=== PATIENT | male | born 1945 | race Caucasian/White ===

== ENCOUNTER 2017-06-08 08:31 | Inpatient (IN) | payer MEDICARE, BC ==
[2017-06-08] MEDS: SOD CHLORIDE 0.9% 1,000 ML IV ×5 (08:47→23:19)
[2017-06-08 09:12] LABS: ABNORMAL IP MESSAGE 1; HEMATOCRIT 26.1 % (42.0-52.0); HEMOGLOBIN 8.5 g/dl (14.0-18.0); MEAN CORPUSCULAR HGB CONC 32.6 g/dl (32.0-37.0); MEAN CORPUSCULAR VOLUME 82.9 fl (82.0-101.0); MEAN PLATELET VOLUME 11.3 fl (7.4-10.4); PLATELET COUNT 478 10^3/UL (140-415); POSITIVE DIFF @See below; RED BLOOD COUNT 3.15 10^6/ul (4.70-6.10); RED CELL DISTRIBUTION WIDTH 14.7 % (11.5-14.5)
[2017-06-08 09:12] LABS: WHITE BLOOD COUNT 35.2 10^3/ul (4.8-10.8)
[2017-06-08 09:20] LABS: ADD MAN DIFF? YES
[2017-06-08] MEDS ORDERED: ONDANSETRON 4 MG INJ IV ×2 (09:30)
[2017-06-08] MEDS ORDERED: NON-FORMULARY/PATIENT OWN MED (Temazepam* 15 MG) PO (09:30)
[2017-06-08] MEDS ORDERED: ACETAMINOPHEN 325 MG TAB PO ×2 (09:30)
[2017-06-08 09:44] LABS: LACTIC ACID 1.2 mmol/L (0.5-2.0)
[2017-06-08 09:44] LABS: INR 1.23; PROTIME 15.7 Sec (11.9-14.9); PT RATIO 1.2
[2017-06-08 09:45] LABS: PARTIAL THROMBOPLASTIN TIME 28.6 Sec (25.0-35.0)
[2017-06-08] MEDS ORDERED: DOCUSATE SODIUM 100 MG CAP PO (10:00)
[2017-06-08] MEDS ORDERED: morphine 2 MG INJ IV (10:00)
[2017-06-08] MEDS ORDERED: NACL 0.9% 3 ML SYG IV (10:00)
[2017-06-08 10:05] LABS: ALANINE AMINOTRANSFERASE 35 IU/L (13-69); ALBUMIN 3.3 g/dl (3.3-4.9); ALBUMIN/GLOBULIN RATIO 0.86; ALKALINE PHOSPHATASE 168 IU/L (42-121); ANION GAP 22 (8-16); ASPARTATE AMINO TRANSFERASE 23 IU/L (15-46); BLOOD UREA NITROGEN 109 mg/dl (7-20); CARBON DIOXIDE 20 mmol/L (21-31); CHLORIDE 99 mmol/L (97-110); CREATININE 4.05 mg/dl (0.61-1.24); GLUCOSE 331 mg/dl (70-220); POTASSIUM 3.9 mmol/L (3.5-5.1); SODIUM 137 mmol/L (135-144); TOTAL PROTEIN 7.1 g/dl (6.1-8.1)
[2017-06-08 10:11] LABS: ADD UMIC NO; UR ASCORBIC ACID NEGATIVE (NEGATIVE); UR BILIRUBIN (Dip) NEGATIVE (NEGATIVE); UR BLOOD (Dip) NEGATIVE (NEGATIVE); UR CLARITY CLEAR (CLEAR); UR COLOR YELLOW (YELLOW); UR GLUCOSE (Dip) 2+ mg/dL (NEGATIVE); UR KETONES (Dip) NEGATIVE (NEGATIVE); UR LEUKOCYTE ESTERASE (Dip) NEGATIVE Leu/ul (NEGATIVE); UR NITRITE (Dip) NEGATIVE (NEGATIVE); UR SPECIFIC GRAVITY (Dip) 1.012 (1.003-1.030); UR TOTAL PROTEIN (Dip) NEGATIVE (NEGATIVE); UR UROBILINOGEN (Dip) NEGATIVE (NEGATIVE)
[2017-06-08 10:14] LABS: TROPONIN-I 0.028 ng/ml (0.00-0.12)
[2017-06-08 10:28] LABS: ANISOCYTOSIS 1+ (0-0); BAND NEUTROPHILS #M 1.7 10^3/ul (0.0-0.6); BAND NEUTROPHILS % (M) 5 % (0-4); BURR CELLS 1+ (0-0); EOSINOPHILS % (M) 1 % (0-7); LYMPHOCYTES #M 2.1 10^3/ul (0.8-2.9); LYMPHOCYTES % (M) 6 % (15-51); MICROCYTOSIS 1+ (0-0); MONOCYTE #M 1.7 10^3/ul (0.3-0.9); MONOCYTES % (M) 5 % (0-11); MYELOCYTES #M 0.7 10^3/ul (0.0-0.0); MYELOCYTES % (M) 2 % (0-0); PLATELET ESTIMATE NORMAL; PLATELET MORPHOLOGY COMMENT @See below; POIKILOCYTOSIS 1+ (0-0); RBC MORPHOLOGY COMMENT @See below; SEG NEUT #M 29.1 10^3/ul (1.7-7.5); SEGMENTED NEUTROPHILS (M) % 81 % (39-77); SMUDGE%M 4 % (0-0); WBC MORPHOLOGY COMMENT @See below
[2017-06-08 10:47] LABS: C-REACTIVE PROTEIN 31.7 mg/dl (0.0-0.9)
[2017-06-08] MEDS: PIPER-TAZO 3.375 GM IV (PMX) 50 ML IVPB (10:51)
[2017-06-08] MEDS: VANCOMYCIN 1 GM (PMX) 250 ML IVPB (11:06)
[2017-06-08] MEDS: SOD CHLORIDE 0.9% 700 ML IV (11:08)
[2017-06-08] MEDS ORDERED: VANCOMYCIN IV PER PHARMACY XX (11:30)
[2017-06-08] MEDS ORDERED: PIPER-TAZO 3.375 GM IV (PMX) 50 ML IVPB (12:00)
[2017-06-08] MEDS: PIPER-TAZO 2.25 GM (PMX) 50 ML IVPB ×2 (12:00→17:11)
[2017-06-08] MEDS ORDERED: ZOLPIDEM 5 MG TAB PO (12:30)
[2017-06-08 12:32] LABS: CHOLESTEROL 65 mg/dl (100-200)
[2017-06-08 12:32] LABS: CHOL/HDL RATIO 5.4 RATIO; HDL CHOLESTEROL 12 mg/dl (31-75); LDL CHOLESTEROL,CALCULATED 20 mg/dl; TRIGLYCERIDES 166 mg/dl (0-149)
[2017-06-08 12:35] LABS: LACTIC ACID 1.2 mmol/L (0.5-2.0)
[2017-06-08] MEDS: INSULIN GLARGINE [LANtus] 3 ML PEN SC (13:00)
[2017-06-08] MEDS: INSULIN ASPART [NOVOLOG] 3 ML PEN SC ×5 (13:02→20:57)
[2017-06-08 13:03] LABS: THYROID STIMULATING HORMONE 0.055 MIU/L (0.465-4.680)
[2017-06-08 13:17] LABS: HEMOGLOBIN A1C 7.5 % (0-5.9)
[2017-06-08] MEDS ORDERED: GLUCOSE GEL 15 GRAM TUBE PO ×2 (14:00)
[2017-06-08] MEDS ORDERED: GLUCOSE GEL 15 GRAM TUBE BUCCAL (14:00)
[2017-06-08] MEDS: VANCOMYCIN 1.75 GM in NS 500 ML IVPB (14:00)
[2017-06-08] MEDS: ENALAPRIL 5 MG TAB PO (14:00)
[2017-06-08] MEDS ORDERED: GLUCAGON 1 MG INJ IM (14:00)
[2017-06-08] MEDS ORDERED: DEXTROSE 50% 50 ML SYRINGE IV (14:00)
[2017-06-08] MEDS: FUROSEMIDE 40 MG TAB PO (15:07)
[2017-06-08] MEDS: CLOPIDOGREL 75 MG TAB PO (15:07)
[2017-06-08] MEDS: FAMOTIDINE 20 MG TAB PO (15:07)
[2017-06-08] MEDS: CLINDAMYCIN 600 MG/D5W (PMX) 50 ML IVPB ×3 (15:09→23:19)
[2017-06-08 15:25] LABS: LACTIC ACID 1.1 mmol/L (0.5-2.0)
[2017-06-08] MEDS ORDERED: COLLAGENASE 30 GM TUBE TOP (17:00)
[2017-06-08] MEDS: SODIUM HYPOCHLORITE 1/40% 1L IRRIG IRR (18:46)
[2017-06-08] MEDS: COLLAGENASE 30 GM TUBE TOP (18:46)
[2017-06-08 19:13] LABS: CREATININE,URINE RANDOM 69.51 mg/dl (20-370); PROTEIN/CREAT RATIO 0.31 RATIO
[2017-06-08 19:15] LABS: SODIUM,URINE RANDOM 42 mmol/L (30-90)
[2017-06-08] MEDS: VANCOMYCIN 750 MG in DEXTROSE 5% 150 ML IVPB (20:50)
[2017-06-08] MEDS: ATORVASTATIN 40 MG TAB PO (20:50)
[2017-06-08] MEDS: METOPROLOL 25 MG TAB PO (20:51)
[2017-06-08] MEDS: PREGABALIN 75 MG CAP PO (20:51)
[2017-06-08] MEDS: HEPARIN 5,000 UNIT/0.5 ML VIAL SC (20:56)
[2017-06-09] MEDS: PIPER-TAZO 2.25 GM (PMX) 50 ML IVPB ×2 (00:23→05:34)
[2017-06-09] MEDS: ACCU-CHEK XX (02:00)
[2017-06-09] MEDS: CLINDAMYCIN 600 MG/D5W (PMX) 50 ML IVPB ×3 (05:02→17:41)
[2017-06-09 05:19] LABS: WHITE BLOOD COUNT 30.8 10^3/ul (4.8-10.8)
[2017-06-09 05:19] LABS: ABNORMAL IP MESSAGE 1; HEMATOCRIT 21.6 % (42.0-52.0); HEMOGLOBIN 7.1 g/dl (14.0-18.0); MEAN CORPUSCULAR HGB CONC 32.9 g/dl (32.0-37.0); MEAN CORPUSCULAR VOLUME 82.1 fl (82.0-101.0); MEAN PLATELET VOLUME 11.6 fl (7.4-10.4); PLATELET COUNT 427 10^3/UL (140-415); POSITIVE DIFF @See below; RED BLOOD COUNT 2.63 10^6/ul (4.70-6.10); RED CELL DISTRIBUTION WIDTH 14.8 % (11.5-14.5)
[2017-06-09 05:38] LABS: ADD MAN DIFF? YES
[2017-06-09 05:51] LABS: URIC ACID 8.2 mg/dl (3.1-7.9)
[2017-06-09 05:51] LABS: CREATINE KINASE 20 IU/L (23-200)
[2017-06-09 06:21] LABS: MAGNESIUM 1.6 mg/dl (1.7-2.5)
[2017-06-09 06:21] LABS: PHOSPHORUS 3.7 mg/dl (2.5-4.9)
[2017-06-09 07:30] LABS: BAND NEUTROPHILS % (M) 10 % (0-4); EOSINOPHILS % (M) 2 % (0-7); LYMPHOCYTES #M 1.8 10^3/ul (0.8-2.9); LYMPHOCYTES % (M) 6 % (15-51); METAMYELOCYTES #M 0.3 10^3/ul (0.0-0.0); METAMYELOCYTES %M 1 % (0-0); MONOCYTE #M 2.4 10^3/ul (0.3-0.9); MONOCYTES % (M) 8 % (0-11); OVALOCYTES 1+ (0-0); PLATELET ESTIMATE NORMAL; POIKILOCYTOSIS 1+ (0-0); POLYCHROMASIA 1+ (0-0); SEG NEUT #M 23.4 10^3/ul (1.7-7.5); SEGMENTED NEUTROPHILS (M) % 73 % (39-77)
[2017-06-09] MEDS: INSULIN ASPART [NOVOLOG] 3 ML PEN SC ×7 (08:06→21:23)
[2017-06-09] MEDS: INSULIN GLARGINE [LANtus] 3 ML PEN SC (08:07)
[2017-06-09] MEDS: CLOPIDOGREL 75 MG TAB PO (08:07)
[2017-06-09] MEDS: PREGABALIN 75 MG CAP PO ×2 (08:08→21:10)
[2017-06-09] MEDS: FAMOTIDINE 20 MG TAB PO (08:08)
[2017-06-09] MEDS: COLLAGENASE 30 GM TUBE TOP (08:09)
[2017-06-09] MEDS: SODIUM HYPOCHLORITE 1/40% 1L IRRIG IRR (08:09)
[2017-06-09] MEDS: ENALAPRIL 5 MG TAB PO (08:12)
[2017-06-09] MEDS: METOPROLOL 25 MG TAB PO ×2 (08:12→21:14)
[2017-06-09] MEDS: FUROSEMIDE 40 MG TAB PO (08:12)
[2017-06-09] MEDS ORDERED: ENOXAPARIN 40 MG/0.4 ML SYG SC (09:00)
[2017-06-09] MEDS: HEPARIN 5,000 UNIT/0.5 ML VIAL SC ×2 (09:44→21:11)
[2017-06-09] MEDS: ALLOPURINOL 100 MG TAB PO (11:03)
[2017-06-09 11:07] LABS: RETICULOCYTE COUNT # 0.043 X10^6 (0.020-0.110); RETICULOCYTE COUNT % 1.6 % (0.5-1.5)
[2017-06-09 11:07] LABS: RETICULOCYTE RBC 2.67
[2017-06-09 11:12] LABS: IRON 15 ug/dl (35-150)
[2017-06-09 11:21] LABS: % IRON SATURATION 10 % SAT (22-52); TOTAL IRON BINDING CAPACITY 156 ug/dl (241-421)
[2017-06-09] MEDS: MAGNESIUM SULFATE 2 GM/50 ML 50 ML IVPB (11:57)
[2017-06-09] MEDS: SOD CHLORIDE 0.9% 1,000 ML IV ×2 (12:01→17:47)
[2017-06-09 12:19] LABS: ANION GAP 16 (8-16); BLOOD UREA NITROGEN 74 mg/dl (7-20); CALCIUM 8.9 mg/dl (8.4-10.2); CARBON DIOXIDE 22 mmol/L (21-31); CHLORIDE 107 mmol/L (97-110); CREATININE 2.32 mg/dl (0.61-1.24); GLUCOSE 253 mg/dl (70-220); POTASSIUM 3.9 mmol/L (3.5-5.1); SODIUM 141 mmol/L (135-144)
[2017-06-09 12:22] LABS: ABNORMAL IP MESSAGE 1; HEMATOCRIT 22.3 % (42.0-52.0); HEMOGLOBIN 7.3 g/dl (14.0-18.0); MEAN CORPUSCULAR HGB CONC 32.7 g/dl (32.0-37.0); MEAN CORPUSCULAR VOLUME 82.6 fl (82.0-101.0); MEAN PLATELET VOLUME 11.4 fl (7.4-10.4); PLATELET COUNT 484 10^3/UL (140-415); POSITIVE DIFF @See below
[2017-06-09 12:22] LABS: WHITE BLOOD COUNT 33.3 10^3/ul (4.8-10.8)
[2017-06-09 12:57] LABS: ADD MAN DIFF? YES
[2017-06-09 13:25] LABS: BAND NEUTROPHILS #M 0.9 10^3/ul (0.0-0.6); BAND NEUTROPHILS % (M) 3 % (0-4); BASOPHIL #M 0.3 10^3/ul (0.0-0.0); BASOPHILS % (M) 1 % (0-2); EOSINOPHILS % (M) 1 % (0-7); LYMPHOCYTES #M 1.6 10^3/ul (0.8-2.9); LYMPHOCYTES % (M) 5 % (15-51); MONOCYTE #M 0.9 10^3/ul (0.3-0.9); MONOCYTES % (M) 3 % (0-11); MYELOCYTES #M 0.3 10^3/ul (0.0-0.0); MYELOCYTES % (M) 1 % (0-0); PLATELET ESTIMATE INCREASED; POIKILOCYTOSIS 1+ (0-0); SEG NEUT #M 28.9 10^3/ul (1.7-7.5); SEGMENTED NEUTROPHILS (M) % 86 % (39-77); SMUDGE%M 2 % (0-0)
[2017-06-09] MEDS: ACETYLCYSTEINE 600 MG CAP PO ×2 (13:40→21:10)
[2017-06-09] MEDS ORDERED: INFLUENZA VIRUS VACCINE 0.5 ML SYG IM* (14:00)
[2017-06-09] MEDS: ACETAMINOPHEN 325 MG TAB PO (14:53)
[2017-06-09] MEDS: MEROPENEM 500MG/50 ML (PMX) 50 ML IVPB ×2 (14:59→21:10)
[2017-06-09] MEDS: FLUCONAZOLE 100 MG/NS (PMX) 50 ML IVPB (15:34)
[2017-06-09] MEDS: ATORVASTATIN 40 MG TAB PO (21:10)
[2017-06-10] MEDS: CLINDAMYCIN 600 MG/D5W (PMX) 50 ML IVPB ×4 (00:11→17:18)
[2017-06-10] MEDS: ACCU-CHEK XX (02:25)
[2017-06-10 05:58] LABS: ABNORMAL IP MESSAGE 1; HEMATOCRIT 23.5 % (42.0-52.0); HEMOGLOBIN 7.6 g/dl (14.0-18.0); MEAN CORPUSCULAR HEMOGLOBIN 26.5 pg (29.0-33.0); MEAN CORPUSCULAR HGB CONC 32.3 g/dl (32.0-37.0); MEAN CORPUSCULAR VOLUME 81.9 fl (82.0-101.0); MEAN PLATELET VOLUME 11.2 fl (7.4-10.4); PLATELET COUNT 540 10^3/UL (140-415); POSITIVE DIFF @See below; RED BLOOD COUNT 2.87 10^6/ul (4.70-6.10)
[2017-06-10 06:15] LABS: ADD MAN DIFF? YES
[2017-06-10 06:28] LABS: PARTIAL THROMBOPLASTIN TIME 36.8 Sec (25.0-35.0); PROTIME 15.4 Sec (11.9-14.9); PT RATIO 1.2
[2017-06-10 06:43] LABS: ALANINE AMINOTRANSFERASE 42 IU/L (13-69); ALBUMIN/GLOBULIN RATIO 0.76; ALKALINE PHOSPHATASE 179 IU/L (42-121); ANION GAP 18 (8-16); ASPARTATE AMINO TRANSFERASE 63 IU/L (15-46); BILIRUBIN,INDIRECT 0.1 mg/dl (0-1.1); BILIRUBIN,TOTAL 0.1 mg/dl (0.2-1.3); BLOOD UREA NITROGEN 55 mg/dl (7-20); CALCIUM 8.9 mg/dl (8.4-10.2); CARBON DIOXIDE 22 mmol/L (21-31); CHLORIDE 108 mmol/L (97-110); CREATININE 1.76 mg/dl (0.61-1.24); GLUCOSE 225 mg/dl (70-220); POTASSIUM 3.7 mmol/L (3.5-5.1); SODIUM 144 mmol/L (135-144); TOTAL PROTEIN 6.9 g/dl (6.1-8.1)
[2017-06-10] MEDS: FUROSEMIDE 40 MG TAB PO (08:15)
[2017-06-10] MEDS: CLOPIDOGREL 75 MG TAB PO (08:15)
[2017-06-10] MEDS: PREGABALIN 75 MG CAP PO ×2 (08:16→20:55)
[2017-06-10] MEDS: ENALAPRIL 5 MG TAB PO (08:16)
[2017-06-10] MEDS: ALLOPURINOL 100 MG TAB PO (08:16)
[2017-06-10] MEDS: ACETYLCYSTEINE 600 MG CAP PO ×2 (08:17→20:56)
[2017-06-10] MEDS: METOPROLOL 25 MG TAB PO ×2 (08:17→20:56)
[2017-06-10] MEDS: INSULIN ASPART [NOVOLOG] 3 ML PEN SC ×7 (08:18→21:04)
[2017-06-10] MEDS: HEPARIN 5,000 UNIT/0.5 ML VIAL SC ×2 (08:20→21:03)
[2017-06-10] MEDS: INSULIN GLARGINE [LANtus] 3 ML PEN SC (08:21)
[2017-06-10] MEDS: MEROPENEM 500MG/50 ML (PMX) 50 ML IVPB ×2 (08:21→20:55)
[2017-06-10] MEDS ORDERED: IPRATROPIUM (NEB) 0.5 MG/2.5 ML AMP HHN (08:36)
[2017-06-10] MEDS: ALBUTEROL/IPRATROPIUM (NEB) 3 ML AMP HHN (09:00)
[2017-06-10 09:40] LABS: ANISOCYTOSIS 1+ (0-0); BAND NEUTROPHILS #M 1.4 10^3/ul (0.0-0.6); BAND NEUTROPHILS % (M) 4 % (0-4); BURR CELLS 1+ (0-0); GIANT THROMBO% (M) 1 % (0-0); LYMPHOCYTES #M 2.5 10^3/ul (0.8-2.9); LYMPHOCYTES % (M) 7 % (15-51); MONOCYTE #M 3.2 10^3/ul (0.3-0.9); MONOCYTES % (M) 9 % (0-11); OVALOCYTES 1+ (0-0); PLASMA CELLS #M 0.3 10^3/ul (0.0-0.0); PLASMAC%(M) 1 % (0); PLATELET ESTIMATE INCREASED; PLATELET MORPHOLOGY COMMENT @See below; POIKILOCYTOSIS 2+ (0-0); POLYCHROMASIA 2+ (0-0); SEG NEUT #M 28.9 10^3/ul (1.7-7.5); SEGMENTED NEUTROPHILS (M) % 79 % (39-77); SMUDGE%M 3 % (0-0)
[2017-06-10] MEDS: FUROSEMIDE 40 MG INJ IV (11:28)
[2017-06-10] MEDS: COLLAGENASE 30 GM TUBE TOP (11:34)
[2017-06-10] MEDS: SODIUM HYPOCHLORITE 1/40% 1L IRRIG IRR (11:34)
[2017-06-10] MEDS: FLUCONAZOLE 100 MG/NS (PMX) 50 ML IVPB (15:01)
[2017-06-10] MEDS: ATORVASTATIN 40 MG TAB PO (20:55)
[2017-06-11] MEDS: CLINDAMYCIN 600 MG/D5W (PMX) 50 ML IVPB ×5 (00:04→23:51)
[2017-06-11] MEDS: ACCU-CHEK XX (02:40)
[2017-06-11] MEDS: ONDANSETRON 4 MG INJ IV ×3 (05:18→21:11)
[2017-06-11 06:13] LABS: WHITE BLOOD COUNT 35.5 10^3/ul (4.8-10.8)
[2017-06-11 06:13] LABS: ABNORMAL IP MESSAGE 1; HEMATOCRIT 23.8 % (42.0-52.0); HEMOGLOBIN 7.9 g/dl (14.0-18.0); MEAN CORPUSCULAR HEMOGLOBIN 26.7 pg (29.0-33.0); MEAN CORPUSCULAR HGB CONC 33.2 g/dl (32.0-37.0); MEAN CORPUSCULAR VOLUME 80.4 fl (82.0-101.0); MEAN PLATELET VOLUME 11.3 fl (7.4-10.4); PLATELET COUNT 521 10^3/UL (140-415); POSITIVE DIFF @See below; RED BLOOD COUNT 2.96 10^6/ul (4.70-6.10); RED CELL DISTRIBUTION WIDTH 14.9 % (11.5-14.5)
[2017-06-11 06:18] LABS: ADD MAN DIFF? YES
[2017-06-11 06:46] LABS: ANION GAP 16 (8-16); BLOOD UREA NITROGEN 44 mg/dl (7-20); CALCIUM 8.8 mg/dl (8.4-10.2); CARBON DIOXIDE 27 mmol/L (21-31); CHLORIDE 103 mmol/L (97-110); CREATININE 1.52 mg/dl (0.61-1.24); GLUCOSE 280 mg/dl (70-220); SODIUM 143 mmol/L (135-144)
[2017-06-11] MEDS: PREGABALIN 75 MG CAP PO ×2 (08:09→21:01)
[2017-06-11] MEDS: CLOPIDOGREL 75 MG TAB PO (08:09)
[2017-06-11] MEDS: ACETYLCYSTEINE 600 MG CAP PO ×2 (08:09→21:00)
[2017-06-11] MEDS: ALLOPURINOL 100 MG TAB PO (08:09)
[2017-06-11] MEDS: FUROSEMIDE 40 MG TAB PO (08:11)
[2017-06-11] MEDS: METOPROLOL 25 MG TAB PO ×2 (08:12→21:03)
[2017-06-11] MEDS: ENALAPRIL 5 MG TAB PO (08:12)
[2017-06-11] MEDS: INSULIN ASPART [NOVOLOG] 3 ML PEN SC ×7 (08:13→21:00)
[2017-06-11] MEDS: INSULIN GLARGINE [LANtus] 3 ML PEN SC (08:15)
[2017-06-11] MEDS: HEPARIN 5,000 UNIT/0.5 ML VIAL SC ×2 (08:15→21:02)
[2017-06-11] MEDS: MEROPENEM 500MG/50 ML (PMX) 50 ML IVPB (08:18)
[2017-06-11] MEDS: SODIUM HYPOCHLORITE 1/40% 1L IRRIG IRR (08:20)
[2017-06-11] MEDS: COLLAGENASE 30 GM TUBE TOP (08:21)
[2017-06-11 09:40] LABS: ANISOCYTOSIS 1+ (0-0); BAND NEUTROPHILS % (M) 3 % (0-4); LYMPHOCYTES #M 0.7 10^3/ul (0.8-2.9); LYMPHOCYTES % (M) 2 % (15-51); MONOCYTE #M 2.1 10^3/ul (0.3-0.9); MONOCYTES % (M) 6 % (0-11); MYELOCYTES #M 0.3 10^3/ul (0.0-0.0); MYELOCYTES % (M) 1 % (0-0); PLATELET ESTIMATE INCREASED; POLYCHROMASIA 3+ (0-0); SEG NEUT #M 31.6 10^3/ul (1.7-7.5); SEGMENTED NEUTROPHILS (M) % 88 % (39-77); SMUDGE%M 1 % (0-0)
[2017-06-11] MEDS: POTASSIUM CHLORIDE (SR) 20 MEQ TAB PO (11:50)
[2017-06-11] MEDS: FLUCONAZOLE 100 MG/NS (PMX) 50 ML IVPB (13:49)
[2017-06-11] MEDS: MULTIVIT/CA CARB/B CMPLX/FA TAB PO (17:41)
[2017-06-11] MEDS: ZINC SULFATE 220 MG CAP PO (17:41)
[2017-06-11] MEDS: ATORVASTATIN 40 MG TAB PO (21:00)
[2017-06-11] MEDS: MEROPENEM 1 GM/50ML(PMX) 50 ML IVPB (21:03)
[2017-06-11] MEDS: FAMOTIDINE 20 MG INJ IV (22:05)
[2017-06-11] MEDS: ACETAMINOPHEN 325 MG TAB PO (23:56)
[2017-06-12] MEDS: ACCU-CHEK XX (02:00)
[2017-06-12] MEDS: CLINDAMYCIN 600 MG/D5W (PMX) 50 ML IVPB ×4 (05:48→23:07)
[2017-06-12 06:43] LABS: WHITE BLOOD COUNT 30.9 10^3/ul (4.8-10.8)
[2017-06-12 06:43] LABS: ABNORMAL IP MESSAGE 1; HEMATOCRIT 23.7 % (42.0-52.0); HEMOGLOBIN 7.7 g/dl (14.0-18.0); MEAN CORPUSCULAR HEMOGLOBIN 26.5 pg (29.0-33.0); MEAN CORPUSCULAR HGB CONC 32.5 g/dl (32.0-37.0); MEAN CORPUSCULAR VOLUME 81.4 fl (82.0-101.0); MEAN PLATELET VOLUME 10.9 fl (7.4-10.4); PLATELET COUNT 467 10^3/UL (140-415); POSITIVE DIFF @See below; RED BLOOD COUNT 2.91 10^6/ul (4.70-6.10); RED CELL DISTRIBUTION WIDTH 14.7 % (11.5-14.5)
[2017-06-12 06:56] LABS: ADD MAN DIFF? YES
[2017-06-12 07:13] LABS: ANION GAP 14 (8-16); BLOOD UREA NITROGEN 45 mg/dl (7-20); CALCIUM 8.7 mg/dl (8.4-10.2); CARBON DIOXIDE 30 mmol/L (21-31); CHLORIDE 100 mmol/L (97-110); CREATININE 1.49 mg/dl (0.61-1.24); GLUCOSE 236 mg/dl (70-220); POTASSIUM 3.2 mmol/L (3.5-5.1); SODIUM 141 mmol/L (135-144)
[2017-06-12 07:18] LABS: PHOSPHORUS 4.1 mg/dl (2.5-4.9)
[2017-06-12 07:18] LABS: MAGNESIUM 1.8 mg/dl (1.7-2.5)
[2017-06-12] MEDS: CLOPIDOGREL 75 MG TAB PO (08:17)
[2017-06-12] MEDS: MULTIVIT/CA CARB/B CMPLX/FA TAB PO (08:17)
[2017-06-12] MEDS: ACETYLCYSTEINE 600 MG CAP PO ×2 (08:17→20:34)
[2017-06-12] MEDS: ZINC SULFATE 220 MG CAP PO (08:17)
[2017-06-12] MEDS: PREGABALIN 75 MG CAP PO ×2 (08:18→20:34)
[2017-06-12] MEDS: FUROSEMIDE 40 MG TAB PO (08:18)
[2017-06-12] MEDS: METOPROLOL 25 MG TAB PO ×2 (08:18→20:33)
[2017-06-12] MEDS: ALLOPURINOL 100 MG TAB PO (08:18)
[2017-06-12] MEDS: ENALAPRIL 5 MG TAB PO (08:18)
[2017-06-12] MEDS: FAMOTIDINE 20 MG INJ IV (08:19)
[2017-06-12] MEDS: MEROPENEM 1 GM/50ML(PMX) 50 ML IVPB ×2 (08:19→20:32)
[2017-06-12] MEDS: INSULIN ASPART [NOVOLOG] 3 ML PEN SC ×7 (08:29→20:35)
[2017-06-12] MEDS: HEPARIN 5,000 UNIT/0.5 ML VIAL SC ×2 (08:31→20:34)
[2017-06-12] MEDS: INSULIN GLARGINE [LANtus] 3 ML PEN SC (08:31)
[2017-06-12 09:39] LABS: BAND NEUTROPHILS #M 0.9 10^3/ul (0.0-0.6); BAND NEUTROPHILS % (M) 3 % (0-4); LYMPHOCYTES #M 1.2 10^3/ul (0.8-2.9); LYMPHOCYTES % (M) 4 % (15-51); MONOCYTE #M 2.7 10^3/ul (0.3-0.9); MONOCYTES % (M) 9 % (0-11); PLATELET ESTIMATE NORMAL; POIKILOCYTOSIS 1+ (0-0); POLYCHROMASIA 3+ (0-0); REACTIVE LYMPHOCYTES #M 0.6 10^3/ul (0.0-0.0); REACTIVE LYMPHOCYTES% (M) 2 % (0-0); SEG NEUT #M 25.6 10^3/ul (1.7-7.5); SEGMENTED NEUTROPHILS (M) % 82 % (39-77)
[2017-06-12] MEDS: POTASSIUM CHLORIDE (SR) 20 MEQ TAB PO (12:14)
[2017-06-12] MEDS: SODIUM HYPOCHLORITE 1/40% 1L IRRIG IRR (13:04)
[2017-06-12] MEDS: COLLAGENASE 30 GM TUBE TOP (13:04)
[2017-06-12] MEDS: FLUCONAZOLE 100 MG/NS (PMX) 50 ML IVPB (14:39)
[2017-06-12] MEDS: ATORVASTATIN 40 MG TAB PO (20:34)
[2017-06-12] MEDS: ACETAMINOPHEN 325 MG TAB PO (21:18)
[2017-06-12] MEDS: morphine 2 MG INJ IV (23:07)
[2017-06-12] MEDS: ONDANSETRON 4 MG INJ IV (23:07)
[2017-06-13] MEDS: ACCU-CHEK XX (01:24)
[2017-06-13] MEDS: CLINDAMYCIN 600 MG/D5W (PMX) 50 ML IVPB ×4 (05:26→23:48)
[2017-06-13 05:46] LABS: ABNORMAL IP MESSAGE 1; HEMATOCRIT 25.4 % (42.0-52.0); HEMOGLOBIN 8.1 g/dl (14.0-18.0); MEAN CORPUSCULAR HEMOGLOBIN 26.3 pg (29.0-33.0); MEAN CORPUSCULAR HGB CONC 31.9 g/dl (32.0-37.0); MEAN CORPUSCULAR VOLUME 82.5 fl (82.0-101.0); MEAN PLATELET VOLUME 10.9 fl (7.4-10.4); PLATELET COUNT 436 10^3/UL (140-415); POSITIVE DIFF @See below; RED BLOOD COUNT 3.08 10^6/ul (4.70-6.10); RED CELL DISTRIBUTION WIDTH 14.9 % (11.5-14.5)
[2017-06-13 05:46] LABS: WHITE BLOOD COUNT 28.6 10^3/ul (4.8-10.8)
[2017-06-13 06:13] LABS: ANION GAP 12 (8-16); BLOOD UREA NITROGEN 38 mg/dl (7-20); CALCIUM 8.9 mg/dl (8.4-10.2); CARBON DIOXIDE 33 mmol/L (21-31); CHLORIDE 98 mmol/L (97-110); CREATININE 1.43 mg/dl (0.61-1.24); GLUCOSE 189 mg/dl (70-220); POTASSIUM 3.4 mmol/L (3.5-5.1); SODIUM 140 mmol/L (135-144)
[2017-06-13 06:20] LABS: ADD MAN DIFF? YES
[2017-06-13] MEDS: COLLAGENASE 30 GM TUBE TOP (08:37)
[2017-06-13] MEDS: FAMOTIDINE 20 MG TAB PO (08:38)
[2017-06-13] MEDS: FUROSEMIDE 40 MG TAB PO (08:38)
[2017-06-13] MEDS: CLOPIDOGREL 75 MG TAB PO (08:38)
[2017-06-13] MEDS: POTASSIUM CHLORIDE (SR) 20 MEQ TAB PO (08:38)
[2017-06-13] MEDS: ACETYLCYSTEINE 600 MG CAP PO (08:39)
[2017-06-13] MEDS: ENALAPRIL 5 MG TAB PO (08:39)
[2017-06-13] MEDS: METOPROLOL 25 MG TAB PO ×2 (08:39→20:43)
[2017-06-13] MEDS: ALLOPURINOL 100 MG TAB PO (08:39)
[2017-06-13] MEDS: MULTIVIT/CA CARB/B CMPLX/FA TAB PO (08:39)
[2017-06-13] MEDS: ZINC SULFATE 220 MG CAP PO (08:39)
[2017-06-13] MEDS: PREGABALIN 75 MG CAP PO ×2 (08:39→20:43)
[2017-06-13] MEDS: HEPARIN 5,000 UNIT/0.5 ML VIAL SC ×2 (08:40→20:52)
[2017-06-13] MEDS: SODIUM HYPOCHLORITE 1/40% 1L IRRIG IRR (08:40)
[2017-06-13] MEDS: MEROPENEM 1 GM/50ML(PMX) 50 ML IVPB ×2 (08:45→20:43)
[2017-06-13] MEDS: INSULIN GLARGINE [LANtus] 3 ML PEN SC (08:52)
[2017-06-13] MEDS: INSULIN ASPART [NOVOLOG] 3 ML PEN SC ×7 (08:53→20:51)
[2017-06-13 10:13] LABS: EOSINOPHILS % (M) 1 % (0-7); GIANT THROMBO% (M) 1 % (0-0); LYMPHOCYTES % (M) 7 % (15-51); MONOCYTES % (M) 7 % (0-11); PLATELET ESTIMATE NORMAL; POLYCHROMASIA 2+ (0-0); SEGMENTED NEUTROPHILS (M) % 85 % (39-77); SMUDGE%M 3 % (0-0)
[2017-06-13] MEDS: FLUCONAZOLE 100 MG/NS (PMX) 50 ML IVPB (13:37)
[2017-06-13] MEDS: LINAGLIPTIN 5 MG TABLET PO (14:56)
[2017-06-13] MEDS: ATORVASTATIN 40 MG TAB PO (20:43)
[2017-06-14] MEDS: ACCU-CHEK XX (02:53)
[2017-06-14] MEDS: CLINDAMYCIN 600 MG/D5W (PMX) 50 ML IVPB ×3 (05:34→17:09)
[2017-06-14 05:55] LABS: ABNORMAL IP MESSAGE 1; HEMATOCRIT 26.1 % (42.0-52.0); HEMOGLOBIN 8.3 g/dl (14.0-18.0); MEAN CORPUSCULAR HGB CONC 31.8 g/dl (32.0-37.0); MEAN CORPUSCULAR VOLUME 81.8 fl (82.0-101.0); MEAN PLATELET VOLUME 11.4 fl (7.4-10.4); PLATELET COUNT 413 10^3/UL (140-415); POSITIVE DIFF @See below; RED BLOOD COUNT 3.19 10^6/ul (4.70-6.10); RED CELL DISTRIBUTION WIDTH 14.8 % (11.5-14.5)
[2017-06-14 05:55] LABS: WHITE BLOOD COUNT 26.8 10^3/ul (4.8-10.8)
[2017-06-14 06:14] LABS: ANION GAP 10 (8-16); BLOOD UREA NITROGEN 37 mg/dl (7-20); CALCIUM 8.3 mg/dl (8.4-10.2); CARBON DIOXIDE 32 mmol/L (21-31); CHLORIDE 98 mmol/L (97-110); CREATININE 1.36 mg/dl (0.61-1.24); GLUCOSE 206 mg/dl (70-220); POTASSIUM 3.4 mmol/L (3.5-5.1); SODIUM 137 mmol/L (135-144)
[2017-06-14 06:30] LABS: ADD MAN DIFF? YES
[2017-06-14 07:44] LABS: BASOPHIL #M 0.2 10^3/ul (0.0-0.0); BASOPHILS % (M) 1 % (0-2); PLATELET ESTIMATE NORMAL; POLYCHROMASIA 3+ (0-0); SMUDGE%M 3 % (0-0)
[2017-06-14] MEDS: MULTIVIT/CA CARB/B CMPLX/FA TAB PO (08:20)
[2017-06-14] MEDS: LINAGLIPTIN 5 MG TABLET PO (08:20)
[2017-06-14] MEDS: METOPROLOL 25 MG TAB PO ×2 (08:20→21:27)
[2017-06-14] MEDS: FUROSEMIDE 40 MG TAB PO (08:21)
[2017-06-14] MEDS: ALLOPURINOL 100 MG TAB PO (08:21)
[2017-06-14] MEDS: ZINC SULFATE 220 MG CAP PO (08:21)
[2017-06-14] MEDS: CLOPIDOGREL 75 MG TAB PO (08:21)
[2017-06-14] MEDS: ENALAPRIL 5 MG TAB PO (08:21)
[2017-06-14] MEDS: FAMOTIDINE 20 MG TAB PO (08:21)
[2017-06-14] MEDS: PREGABALIN 75 MG CAP PO ×2 (08:21→21:26)
[2017-06-14] MEDS: HEPARIN 5,000 UNIT/0.5 ML VIAL SC ×2 (08:25→21:30)
[2017-06-14] MEDS: INSULIN GLARGINE [LANtus] 3 ML PEN SC (08:28)
[2017-06-14] MEDS: INSULIN ASPART [NOVOLOG] 3 ML PEN SC ×7 (08:29→21:29)
[2017-06-14] MEDS: MEROPENEM 1 GM/50ML(PMX) 50 ML IVPB ×2 (11:31→21:26)
[2017-06-14] MEDS: SODIUM HYPOCHLORITE 1/40% 1L IRRIG IRR (11:31)
[2017-06-14] MEDS: COLLAGENASE 30 GM TUBE TOP (11:32)
[2017-06-14] MEDS: POTASSIUM CHLORIDE (SR) 20 MEQ TAB PO (11:34)
[2017-06-14 12:34] LABS: BAND NEUTROPHILS #M 0.8 10^3/ul (0.0-0.6); BAND NEUTROPHILS % (M) 3 % (0-4); LYMPHOCYTES #M 1.3 10^3/ul (0.8-2.9); LYMPHOCYTES % (M) 5 % (15-51); MONOCYTES % (M) 4 % (0-11); SEG NEUT #M 23.8 10^3/ul (1.7-7.5); SEGMENTED NEUTROPHILS (M) % 88 % (39-77)
[2017-06-14] MEDS: FLUCONAZOLE 100 MG/NS (PMX) 50 ML IVPB (15:53)
[2017-06-14] MEDS: morphine 2 MG INJ IV (17:09)
[2017-06-14] MEDS: ATORVASTATIN 40 MG TAB PO (21:26)
[2017-06-15] MEDS: CLINDAMYCIN 600 MG/D5W (PMX) 50 ML IVPB ×3 (01:13→12:14)
[2017-06-15] MEDS: ACCU-CHEK XX (01:17)
[2017-06-15 05:55] LABS: ADD MAN DIFF? NO
[2017-06-15 07:04] LABS: ANION GAP 12 (8-16); BLOOD UREA NITROGEN 41 mg/dl (7-20); CALCIUM 8.2 mg/dl (8.4-10.2); CARBON DIOXIDE 32 mmol/L (21-31); CHLORIDE 95 mmol/L (97-110); CREATININE 1.24 mg/dl (0.61-1.24); GLUCOSE 192 mg/dl (70-220); POTASSIUM 3.4 mmol/L (3.5-5.1); SODIUM 136 mmol/L (135-144)
[2017-06-15 07:56] LABS: ABNORMAL IP MESSAGE 1; BASOPHIL # 0.1 10^3/ul (0.0-0.1); BASOPHILS % 0.2 % (0.0-2.0); EOSINOPHILS # 0.1 10^3/ul (0.0-0.5); EOSINOPHILS % 0.6 % (0.0-7.0); HEMATOCRIT 24.7 % (42.0-52.0); HEMOGLOBIN 7.7 g/dl (14.0-18.0); LYMPHOCYTES # 2.5 10^3/ul (0.8-2.9); LYMPHOCYTES % 11.2 % (15.0-51.0); MEAN CORPUSCULAR HEMOGLOBIN 25.9 pg (29.0-33.0); MEAN CORPUSCULAR HGB CONC 31.2 g/dl (32.0-37.0); MEAN CORPUSCULAR VOLUME 83.2 fl (82.0-101.0); MONOCYTE # 1.8 10^3/ul (0.3-0.9); MONOCYTES % 7.8 % (0.0-11.0); NEUTROPHIL # 17.6 10^3/ul (1.6-7.5); NEUTROPHILS % 78.9 % (39.0-77.0); PLATELET COUNT 399 10^3/UL (140-415); POSITIVE DIFF @See below; RED BLOOD COUNT 2.97 10^6/ul (4.70-6.10); RED CELL DISTRIBUTION WIDTH 15.1 % (11.5-14.5)
[2017-06-15 07:56] LABS: WHITE BLOOD COUNT 22.3 10^3/ul (4.8-10.8)
[2017-06-15] MEDS: MULTIVIT/CA CARB/B CMPLX/FA TAB PO (08:52)
[2017-06-15] MEDS: PREGABALIN 75 MG CAP PO ×2 (08:52→23:51)
[2017-06-15] MEDS: CLOPIDOGREL 75 MG TAB PO (08:52)
[2017-06-15] MEDS: FAMOTIDINE 20 MG TAB PO (08:52)
[2017-06-15] MEDS: LINAGLIPTIN 5 MG TABLET PO (08:52)
[2017-06-15] MEDS: ALLOPURINOL 100 MG TAB PO (08:53)
[2017-06-15] MEDS: FUROSEMIDE 20 MG TAB PO (08:53)
[2017-06-15] MEDS: METOPROLOL 25 MG TAB PO ×2 (08:54→21:00)
[2017-06-15] MEDS: ENALAPRIL 5 MG TAB PO (08:54)
[2017-06-15] MEDS: HEPARIN 5,000 UNIT/0.5 ML VIAL SC ×2 (08:57→23:53)
[2017-06-15] MEDS: INSULIN ASPART [NOVOLOG] 3 ML PEN SC ×7 (09:02→21:00)
[2017-06-15] MEDS: INSULIN GLARGINE [LANtus] 3 ML PEN SC (09:04)
[2017-06-15] MEDS: morphine 2 MG INJ IV (09:05)
[2017-06-15] MEDS: MEROPENEM 1 GM/50ML(PMX) 50 ML IVPB (09:37)
[2017-06-15] MEDS: ZINC SULFATE 220 MG CAP PO (09:37)
[2017-06-15] MEDS: COLLAGENASE 30 GM TUBE TOP (09:38)
[2017-06-15] MEDS: SODIUM HYPOCHLORITE 1/40% 1L IRRIG IRR (09:38)
[2017-06-15] MEDS: FLUCONAZOLE 100 MG/NS (PMX) 50 ML IVPB (15:05)
[2017-06-15] MEDS: LEVOFLOXACIN 500 MG TAB PO (17:32)
[2017-06-15] MEDS: IBUPROFEN 600 MG TAB PO ×2 (17:33→23:54)
[2017-06-15] MEDS: DAPTOMYCIN 500 MG in SOD CHLORIDE 0.9% 100 ML IVPB (17:44)
[2017-06-15] MEDS: SOD CHLORIDE 0.9% 250 ML IV ×2 (21:07→21:30)
[2017-06-15] MEDS: SOD CHLORIDE 0.9% 1,000 ML IV (22:16)
[2017-06-15 23:18] LABS: OCCULT BLOOD STOOL NEGATIVE (NEGATIVE)
[2017-06-15] MEDS: ATORVASTATIN 40 MG TAB PO (23:51)
[2017-06-16] MEDS: ACCU-CHEK XX (02:00)
[2017-06-16] MEDS: LEVOFLOXACIN 500 MG TAB PO (05:30)
[2017-06-16] MEDS: IBUPROFEN 600 MG TAB PO (05:32)
[2017-06-16 06:20] LABS: ADD MAN DIFF? NO
[2017-06-16 06:30] LABS: WHITE BLOOD COUNT 15.2 10^3/ul (4.8-10.8)
[2017-06-16 06:30] LABS: BASOPHILS % 0.3 % (0.0-2.0); EOSINOPHILS # 0.2 10^3/ul (0.0-0.5); EOSINOPHILS % 1.5 % (0.0-7.0); HEMATOCRIT 22.8 % (42.0-52.0); HEMOGLOBIN 7.1 g/dl (14.0-18.0); LYMPHOCYTES # 1.4 10^3/ul (0.8-2.9); LYMPHOCYTES % 9.4 % (15.0-51.0); MEAN CORPUSCULAR HEMOGLOBIN 26.2 pg (29.0-33.0); MEAN CORPUSCULAR HGB CONC 31.1 g/dl (32.0-37.0); MEAN CORPUSCULAR VOLUME 84.1 fl (82.0-101.0); MONOCYTE # 1.2 10^3/ul (0.3-0.9); MONOCYTES % 8.1 % (0.0-11.0); NEUTROPHILS % 79.1 % (39.0-77.0); PLATELET COUNT 347 10^3/UL (140-415); RED BLOOD COUNT 2.71 10^6/ul (4.70-6.10); RED CELL DISTRIBUTION WIDTH 15.1 % (11.5-14.5)
[2017-06-16 07:08] LABS: ANION GAP 10 (8-16); BLOOD UREA NITROGEN 48 mg/dl (7-20); CALCIUM 7.7 mg/dl (8.4-10.2); CARBON DIOXIDE 32 mmol/L (21-31); CHLORIDE 99 mmol/L (97-110); CREATININE 1.28 mg/dl (0.61-1.24); GLUCOSE 165 mg/dl (70-220); POTASSIUM 3.4 mmol/L (3.5-5.1); SODIUM 138 mmol/L (135-144)
[2017-06-16 07:56] LABS: CREATINE KINASE 32 IU/L (23-200)
[2017-06-16] MEDS: INSULIN ASPART [NOVOLOG] 3 ML PEN SC ×7 (08:26→20:05)
[2017-06-16] MEDS: HEPARIN 5,000 UNIT/0.5 ML VIAL SC (08:28)
[2017-06-16] MEDS: INSULIN GLARGINE [LANtus] 3 ML PEN SC (08:28)
[2017-06-16] MEDS: FAMOTIDINE 20 MG TAB PO (08:29)
[2017-06-16] MEDS: CLOPIDOGREL 75 MG TAB PO (08:29)
[2017-06-16] MEDS: MULTIVIT/CA CARB/B CMPLX/FA TAB PO (08:29)
[2017-06-16] MEDS: ZINC SULFATE 220 MG CAP PO (08:29)
[2017-06-16] MEDS: FUROSEMIDE 20 MG TAB PO (08:29)
[2017-06-16] MEDS: ALLOPURINOL 100 MG TAB PO (08:29)
[2017-06-16] MEDS: METOPROLOL 25 MG TAB PO ×2 (08:29→21:00)
[2017-06-16] MEDS: PREGABALIN 75 MG CAP PO (08:29)
[2017-06-16] MEDS: LINAGLIPTIN 5 MG TABLET PO (08:29)
[2017-06-16] MEDS: ENALAPRIL 5 MG TAB PO (08:29)
[2017-06-16] MEDS: SOD CHLORIDE 0.9% 1,000 ML IV ×2 (08:32→21:50)
[2017-06-16] MEDS: SODIUM HYPOCHLORITE 1/40% 1L IRRIG IRR (08:39)
[2017-06-16] MEDS: COLLAGENASE 30 GM TUBE TOP (08:39)
[2017-06-16] MEDS: POTASSIUM CHLORIDE (SR) 20 MEQ TAB PO (12:15)
[2017-06-16] MEDS: FLUCONAZOLE 100 MG/NS (PMX) 50 ML IVPB (13:22)
[2017-06-16] MEDS: GUAIFENESIN 20 MG/ML 5ML CUP PO (14:23)
[2017-06-16] MEDS: SOD CHLORIDE 0.9% 250 ML IV* (14:35)
[2017-06-16] MEDS ORDERED: CEPASTAT LOZENGE MT (15:00)
[2017-06-16] MEDS: DAPTOMYCIN 500 MG in SOD CHLORIDE 0.9% 100 ML IVPB (17:18)
[2017-06-16] MEDS: METHYLPREDNISOLONE 125 MG INJ IV (17:20)
[2017-06-16] MEDS ORDERED: FUROSEMIDE 40 MG INJ (17:31)
[2017-06-16] MEDS: FUROSEMIDE 40 MG INJ IV (17:41)
[2017-06-16] MEDS ORDERED: NITROGLYCERIN 50 MG/D5W (PMX) 250 ML (18:14)
[2017-06-16 18:25] LABS: AADO2 Arterial 273.7 mmHg (7.0-24.0); Allen Test ACCEPTAB; Arterial Blood Gas Oxygen Sat 97.5 mmHG (95.0-100.0); Arterial COHb 0.3 % (0.0-3.0); Arterial Fraction of Oxyhgb 96.9 % (93.0-99.0); Arterial HCO3 24.9 mmol/L (22.0-26.0); Arterial MetHb 0.3 % (0.0-1.5); Arterial Total Hemglobin 9.9 g/dl (12.0-18.0); Arterial pCO2 46.7 mmhg (35-45); MODE MASK - SIMPLE; Site Right Radial
[2017-06-16] MEDS: NITROGLYCERIN 50 MG/D5W (PMX) 250 ML IV (18:47)
[2017-06-16 20:36] LABS: AADO2 Arterial 102.6 mmHg (7.0-24.0); Allen Test ACCEPTAB; Arterial Base Excess 0.8 mmol/L (-3.0-3); Arterial Blood Gas Oxygen Sat 98.7 mmHG (95.0-100.0); Arterial COHb 0.1 % (0.0-3.0); Arterial Fraction of Oxyhgb 98.3 % (93.0-99.0); Arterial HCO3 24.8 mmol/L (22.0-26.0); Arterial MetHb 0.3 % (0.0-1.5); Arterial Total Hemglobin 8.3 g/dl (12.0-18.0); Arterial pCO2 36.6 mmhg (35-45); Blood Gas IEPAP 14/5; Blood Gas PS 9; MODE MASK - BIPAP; Site Right Radial
[2017-06-16] MEDS: ATORVASTATIN 40 MG TAB PO (21:49)
[2017-06-16] MEDS: PREGABALIN 25 MG CAP PO (23:53)
[2017-06-17] MEDS: FUROSEMIDE 20 MG INJ IV (01:00)
[2017-06-17] MEDS: ACCU-CHEK XX ×14 (02:06→23:48)
[2017-06-17] MEDS ORDERED: INSULIN ASPART [NOVOLOG] 3 ML PEN SC ×3 (02:30→11:30)
[2017-06-17] MEDS: INSULIN ASPART [NOVOLOG] 3 ML PEN SC ×3 (02:58→08:25)
[2017-06-17 05:28] LABS: WHITE BLOOD COUNT 14.6 10^3/ul (4.8-10.8)
[2017-06-17 05:28] LABS: ABNORMAL IP MESSAGE 1; HEMATOCRIT 22.1 % (42.0-52.0); MEAN CORPUSCULAR HGB CONC 30.8 g/dl (32.0-37.0); MEAN CORPUSCULAR VOLUME 84.4 fl (82.0-101.0); MEAN PLATELET VOLUME 12.1 fl (7.4-10.4); PLATELET COUNT 393 10^3/UL (140-415); POSITIVE DIFF @See below; RED BLOOD COUNT 2.62 10^6/ul (4.70-6.10); RED CELL DISTRIBUTION WIDTH 15.3 % (11.5-14.5)
[2017-06-17] MEDS: SOD CHLORIDE 0.9% 1,000 ML IV ×4 (05:38→20:50)
[2017-06-17] MEDS: NITROGLYCERIN 50 MG/D5W (PMX) 250 ML IV (05:39)
[2017-06-17 05:43] LABS: ADD MAN DIFF? YES; HEMOGLOBIN 6.8 g/dl (14.0-18.0)
[2017-06-17 06:19] LABS: LACTIC ACID 1.9 mmol/L (0.5-2.0)
[2017-06-17 06:20] LABS: AMMONIA < 9 umol/l (9-30)
[2017-06-17 06:34] LABS: PHOSPHORUS 4.5 mg/dl (2.5-4.9)
[2017-06-17 06:37] LABS: ALANINE AMINOTRANSFERASE 93 IU/L (13-69); ALBUMIN 2.4 g/dl (3.3-4.9); ALBUMIN/GLOBULIN RATIO 0.68; ALKALINE PHOSPHATASE 128 IU/L (42-121); ANION GAP 13 (8-16); ASPARTATE AMINO TRANSFERASE 105 IU/L (15-46); BLOOD UREA NITROGEN 49 mg/dl (7-20); CALCIUM 7.9 mg/dl (8.4-10.2); CARBON DIOXIDE 29 mmol/L (21-31); CHLORIDE 99 mmol/L (97-110); CREATININE 1.36 mg/dl (0.61-1.24); GLUCOSE 319 mg/dl (70-220); POTASSIUM 3.9 mmol/L (3.5-5.1); SODIUM 137 mmol/L (135-144); TOTAL PROTEIN 5.9 g/dl (6.1-8.1)
[2017-06-17] MEDS: LEVOFLOXACIN 500 MG TAB PO (06:57)
[2017-06-17] MEDS: INSULIN GLARGINE [LANtus] 3 ML PEN SC ×2 (08:00→10:06)
[2017-06-17 08:39] LABS: BASOPHILS % 0.1 % (0.0-2.0); LYMPHOCYTES # 0.8 10^3/ul (0.8-2.9); LYMPHOCYTES % 5.2 % (15.0-51.0); MONOCYTE # 0.2 10^3/ul (0.3-0.9); MONOCYTES % 1.7 % (0.0-11.0); NEUTROPHIL # 13.3 10^3/ul (1.6-7.5); NEUTROPHILS % 91.9 % (39.0-77.0)
[2017-06-17] MEDS: METOPROLOL 25 MG TAB PO ×2 (09:00→20:43)
[2017-06-17] MEDS: FUROSEMIDE 20 MG TAB PO ×2 (09:00→10:17)
[2017-06-17] MEDS: PREGABALIN 25 MG CAP PO ×2 (10:16→20:42)
[2017-06-17] MEDS: ALLOPURINOL 100 MG TAB PO (10:16)
[2017-06-17] MEDS: ZINC SULFATE 220 MG CAP PO (10:17)
[2017-06-17] MEDS: MULTIVIT/CA CARB/B CMPLX/FA TAB PO (10:17)
[2017-06-17] MEDS: CLOPIDOGREL 75 MG TAB PO (10:17)
[2017-06-17] MEDS: FAMOTIDINE 20 MG TAB PO (10:17)
[2017-06-17] MEDS: ENALAPRIL 5 MG TAB PO (10:18)
[2017-06-17] MEDS: LINAGLIPTIN 5 MG TABLET PO (10:18)
[2017-06-17 10:20] LABS: BAND NEUTROPHILS #M 0.2 10^3/ul (0.0-0.6); BAND NEUTROPHILS % (M) 2 % (0-4); GIANT THROMBO% (M) 1 % (0-0); HYPOCHROMASIA 1+ (0-0); LYMPHOCYTES #M 0.7 10^3/ul (0.8-2.9); LYMPHOCYTES % (M) 5 % (15-51); PLATELET ESTIMATE NORMAL; POLYCHROMASIA 3+ (0-0); SEG NEUT #M 13.6 10^3/ul (1.7-7.5); SEGMENTED NEUTROPHILS (M) % 93 % (39-77); SMUDGE%M 1 % (0-0)
[2017-06-17] MEDS: Discontinue all previous diabetes medication and insulin orders. XX (11:00)
[2017-06-17] MEDS ORDERED: DEXTROSE 50% 50 ML SYRINGE IV ×2 (11:00)
[2017-06-17] MEDS ORDERED: Treatment of Hypoglycemia: XX (11:00)
[2017-06-17] MEDS: SODIUM HYPOCHLORITE 1/40% 1L IRRIG IRR ×2 (12:42→13:02)
[2017-06-17] MEDS: SOD FERRIC GLUC COMPLX 125 MG in SOD CHLORIDE 0.9% 100 ML IVPB (12:42)
[2017-06-17] MEDS: INSULIN HUMAN REGULAR 100 UNIT in SOD CHLORIDE 0.9% 99 ML IV ×4 (13:02→23:41)
[2017-06-17] MEDS: COLLAGENASE 30 GM TUBE TOP (13:02)
[2017-06-17] MEDS: FLUCONAZOLE 100 MG/NS (PMX) 50 ML IVPB (15:19)
[2017-06-17] MEDS: GUAIFENESIN 20 MG/ML 5ML CUP PO (15:52)
[2017-06-17] MEDS: ALBUTEROL/IPRATROPIUM (NEB) 3 ML AMP HHN (16:18)
[2017-06-17] MEDS: DAPTOMYCIN 500 MG in SOD CHLORIDE 0.9% 100 ML IVPB (17:14)
[2017-06-17] MEDS: ATORVASTATIN 40 MG TAB PO (20:42)
[2017-06-17] MEDS: morphine 2 MG INJ IV (23:24)
[2017-06-18] MEDS: HALOPERIDOL 5 MG INJ IM (00:05)
[2017-06-18] MEDS: LORAZEPAM 2 MG INJ IV ×2 (00:07→21:18)
[2017-06-18] MEDS: ACCU-CHEK XX ×9 (01:31→09:00)
[2017-06-18] MEDS: INSULIN HUMAN REGULAR 100 UNIT in SOD CHLORIDE 0.9% 99 ML IV (02:35)
[2017-06-18] MEDS: METOPROLOL 5 MG INJ IV (02:40)
[2017-06-18 05:31] LABS: AADO2 Arterial 158.4 mmHg (7.0-24.0); Allen Test ACCEPTAB; Arterial Base Excess 1.2 mmol/L (-3.0-3); Arterial Blood Gas Oxygen Sat 95.9 mmHG (95.0-100.0); Arterial COHb 0.3 % (0.0-3.0); Arterial Fraction of Oxyhgb 95.3 % (93.0-99.0); Arterial HCO3 25.8 mmol/L (22.0-26.0); Arterial MetHb 0.3 % (0.0-1.5); Arterial Total Hemglobin 11.7 g/dl (12.0-18.0); Arterial pCO2 40.8 mmhg (35-45); Blood Gas PS 9; MODE BIPAP - S/T; Site Right Radial
[2017-06-18 06:07] LABS: ADD MAN DIFF? NO
[2017-06-18 06:14] LABS: WHITE BLOOD COUNT 19.1 10^3/ul (4.8-10.8)
[2017-06-18 06:14] LABS: ABNORMAL IP MESSAGE 1; BASOPHILS % 0.1 % (0.0-2.0); HEMATOCRIT 26.5 % (42.0-52.0); HEMOGLOBIN 8.2 g/dl (14.0-18.0); LYMPHOCYTES # 1.2 10^3/ul (0.8-2.9); LYMPHOCYTES % 6.1 % (15.0-51.0); MEAN CORPUSCULAR HEMOGLOBIN 26.4 pg (29.0-33.0); MEAN CORPUSCULAR HGB CONC 30.9 g/dl (32.0-37.0); MEAN CORPUSCULAR VOLUME 85.2 fl (82.0-101.0); MEAN PLATELET VOLUME 11.9 fl (7.4-10.4); MONOCYTE # 1.6 10^3/ul (0.3-0.9); MONOCYTES % 8.6 % (0.0-11.0); NEUTROPHIL # 16.1 10^3/ul (1.6-7.5); NEUTROPHILS % 84.2 % (39.0-77.0); PLATELET COUNT 520 10^3/UL (140-415); POSITIVE DIFF @See below; RED BLOOD COUNT 3.11 10^6/ul (4.70-6.10); RED CELL DISTRIBUTION WIDTH 15.4 % (11.5-14.5)
[2017-06-18] MEDS: LEVOFLOXACIN 500 MG TAB PO (06:50)
[2017-06-18] MEDS: ACETAMINOPHEN 650 MG SUPP PR (06:50)
[2017-06-18 06:56] LABS: ANION GAP 12 (8-16); BLOOD UREA NITROGEN 46 mg/dl (7-20); CALCIUM 8.3 mg/dl (8.4-10.2); CARBON DIOXIDE 31 mmol/L (21-31); CHLORIDE 103 mmol/L (97-110); CREATININE 1.41 mg/dl (0.61-1.24); GLUCOSE 158 mg/dl (70-220); PHOSPHORUS 3.3 mg/dl (2.5-4.9); POTASSIUM 4.4 mmol/L (3.5-5.1); SODIUM 142 mmol/L (135-144)
[2017-06-18] MEDS: SOD CHLORIDE 0.9% 1,000 ML IV (07:24)
[2017-06-18] MEDS: FAMOTIDINE 20 MG TAB PO (09:00)
[2017-06-18] MEDS: CLOPIDOGREL 75 MG TAB PO (09:00)
[2017-06-18] MEDS: FUROSEMIDE 20 MG TAB PO ×2 (09:00→09:01)
[2017-06-18] MEDS: MULTIVIT/CA CARB/B CMPLX/FA TAB PO (09:00)
[2017-06-18] MEDS: ALLOPURINOL 100 MG TAB PO (09:00)
[2017-06-18] MEDS: ZINC SULFATE 220 MG CAP PO (09:01)
[2017-06-18] MEDS: METOPROLOL 25 MG TAB PO ×2 (09:02→21:16)
[2017-06-18] MEDS: COLLAGENASE 30 GM TUBE TOP (09:02)
[2017-06-18] MEDS: PREGABALIN 25 MG CAP PO ×2 (09:08→21:16)
[2017-06-18] MEDS: ENALAPRIL 5 MG TAB PO (09:33)
[2017-06-18] MEDS: SOD FERRIC GLUC COMPLX 125 MG in SOD CHLORIDE 0.9% 100 ML IVPB (11:47)
[2017-06-18] MEDS: INSULIN ASPART [NOVOLOG] 3 ML PEN SC ×3 (14:30→21:00)
[2017-06-18] MEDS: MEROPENEM 500MG/50 ML (PMX) 50 ML IVPB ×2 (14:35→21:16)
[2017-06-18] MEDS: DAPTOMYCIN 500 MG in SOD CHLORIDE 0.9% 100 ML IVPB (16:37)
[2017-06-18] MEDS: morphine 2 MG INJ IV (17:45)
[2017-06-18] MEDS: ATORVASTATIN 40 MG TAB PO (21:15)
[2017-06-19] MEDS: INSULIN ASPART [NOVOLOG] 3 ML PEN SC ×6 (01:14→21:00)
[2017-06-19] MEDS: morphine 2 MG INJ IV ×4 (01:14→23:11)
[2017-06-19] MEDS: ACCU-CHEK XX (02:00)
[2017-06-19] MEDS: MEROPENEM 500MG/50 ML (PMX) 50 ML IVPB ×3 (05:09→22:02)
[2017-06-19 06:23] LABS: ADD MAN DIFF? NO
[2017-06-19 06:39] LABS: WHITE BLOOD COUNT 11.7 10^3/ul (4.8-10.8)
[2017-06-19 06:39] LABS: BASOPHILS % 0.2 % (0.0-2.0); EOSINOPHILS % 0.2 % (0.0-7.0); HEMATOCRIT 23.5 % (42.0-52.0); LYMPHOCYTES # 1.5 10^3/ul (0.8-2.9); LYMPHOCYTES % 12.8 % (15.0-51.0); MEAN CORPUSCULAR HEMOGLOBIN 25.4 pg (29.0-33.0); MEAN CORPUSCULAR HGB CONC 29.8 g/dl (32.0-37.0); MEAN CORPUSCULAR VOLUME 85.1 fl (82.0-101.0); MEAN PLATELET VOLUME 11.6 fl (7.4-10.4); MONOCYTE # 1.2 10^3/ul (0.3-0.9); NEUTROPHIL # 8.9 10^3/ul (1.6-7.5); NUCLEATED RED BLOOD CELLS% 0.2 /100WBC (0.0-0.0); PLATELET COUNT 450 10^3/UL (140-415); RED BLOOD COUNT 2.76 10^6/ul (4.70-6.10); RED CELL DISTRIBUTION WIDTH 15.4 % (11.5-14.5)
[2017-06-19 06:52] LABS: ANION GAP 10 (8-16); BLOOD UREA NITROGEN 40 mg/dl (7-20); CALCIUM 8.3 mg/dl (8.4-10.2); CARBON DIOXIDE 34 mmol/L (21-31); CHLORIDE 104 mmol/L (97-110); CREATININE 1.22 mg/dl (0.61-1.24); GLUCOSE 133 mg/dl (70-220); POTASSIUM 3.8 mmol/L (3.5-5.1); SODIUM 144 mmol/L (135-144)
[2017-06-19] MEDS: ENALAPRIL 5 MG TAB PO (08:37)
[2017-06-19] MEDS: MULTIVIT/CA CARB/B CMPLX/FA TAB PO (08:37)
[2017-06-19] MEDS: FUROSEMIDE 20 MG TAB PO (08:38)
[2017-06-19] MEDS: PREGABALIN 25 MG CAP PO ×2 (08:38→21:50)
[2017-06-19] MEDS: CLOPIDOGREL 75 MG TAB PO (08:38)
[2017-06-19] MEDS: METOPROLOL 25 MG TAB PO ×2 (08:38→21:00)
[2017-06-19] MEDS: ALLOPURINOL 100 MG TAB PO (08:38)
[2017-06-19] MEDS: ZINC SULFATE 220 MG CAP PO (08:38)
[2017-06-19] MEDS: FAMOTIDINE 20 MG TAB PO (08:38)
[2017-06-19] MEDS: SODIUM HYPOCHLORITE 1/40% 1L IRRIG IRR (08:39)
[2017-06-19] MEDS: COLLAGENASE 30 GM TUBE TOP (08:39)
[2017-06-19] MEDS: INSULIN GLARGINE [LANtus] 3 ML PEN SC (08:47)
[2017-06-19] MEDS: FUROSEMIDE 40 MG INJ IV ×2 (09:00→17:16)
[2017-06-19] MEDS: FUROSEMIDE 20 MG INJ IV (09:58)
[2017-06-19] MEDS: SOD FERRIC GLUC COMPLX 125 MG in SOD CHLORIDE 0.9% 100 ML IVPB (11:01)
[2017-06-19] MEDS: HALOPERIDOL 5 MG INJ IM (15:37)
[2017-06-19] MEDS: DAPTOMYCIN 500 MG in SOD CHLORIDE 0.9% 100 ML IVPB (15:38)
[2017-06-19] MEDS: ACETAMINOPHEN 325 MG TAB PO (16:13)
[2017-06-19] MEDS ORDERED: METOPROLOL 5 MG INJ (18:05)
[2017-06-19] MEDS: METOPROLOL 5 MG INJ IV (18:25)
[2017-06-19] MEDS: DIGOXIN 500 MCG INJ IV (18:41)
[2017-06-19] MEDS: LORAZEPAM 0.5 MG TAB PO (19:36)
[2017-06-19] MEDS: ATORVASTATIN 40 MG TAB PO (21:50)
[2017-06-19] MEDS: SOD CHLORIDE 0.9% 500 ML IV (22:00)
[2017-06-19] MEDS: ALBUTEROL/IPRATROPIUM (NEB) 3 ML AMP HHN (23:08)
[2017-06-20] MEDS: INSULIN ASPART [NOVOLOG] 3 ML PEN SC ×6 (01:00→21:39)
[2017-06-20] MEDS: ACCU-CHEK XX (02:00)
[2017-06-20] MEDS: morphine 2 MG INJ IV ×2 (05:20→22:58)
[2017-06-20 05:26] LABS: ADD MAN DIFF? NO
[2017-06-20 05:31] LABS: WHITE BLOOD COUNT 11.3 10^3/ul (4.8-10.8)
[2017-06-20 05:31] LABS: ABNORMAL IP MESSAGE 1; BASOPHILS % 0.2 % (0.0-2.0); EOSINOPHILS % 0.2 % (0.0-7.0); HEMATOCRIT 22.4 % (42.0-52.0); LYMPHOCYTES # 1.8 10^3/ul (0.8-2.9); LYMPHOCYTES % 15.4 % (15.0-51.0); MEAN CORPUSCULAR HEMOGLOBIN 25.8 pg (29.0-33.0); MEAN CORPUSCULAR HGB CONC 30.8 g/dl (32.0-37.0); MEAN CORPUSCULAR VOLUME 83.9 fl (82.0-101.0); MEAN PLATELET VOLUME 11.4 fl (7.4-10.4); MONOCYTE # 1.1 10^3/ul (0.3-0.9); MONOCYTES % 9.3 % (0.0-11.0); NEUTROPHIL # 8.4 10^3/ul (1.6-7.5); NEUTROPHILS % 73.9 % (39.0-77.0); PLATELET COUNT 464 10^3/UL (140-415); POSITIVE DIFF @See below; RED BLOOD COUNT 2.67 10^6/ul (4.70-6.10); RED CELL DISTRIBUTION WIDTH 15.5 % (11.5-14.5)
[2017-06-20 05:57] LABS: ANION GAP 12 (8-16); BLOOD UREA NITROGEN 38 mg/dl (7-20); CALCIUM 8.3 mg/dl (8.4-10.2); CARBON DIOXIDE 34 mmol/L (21-31); CHLORIDE 101 mmol/L (97-110); CREATININE 1.16 mg/dl (0.61-1.24); GLUCOSE 160 mg/dl (70-220); POTASSIUM 3.7 mmol/L (3.5-5.1); SODIUM 143 mmol/L (135-144)
[2017-06-20 05:58] LABS: HEMOGLOBIN 6.9 g/dl (14.0-18.0)
[2017-06-20] MEDS: FUROSEMIDE 40 MG INJ IV ×3 (06:32→17:11)
[2017-06-20] MEDS: MEROPENEM 500MG/50 ML (PMX) 50 ML IVPB ×3 (06:33→22:57)
[2017-06-20] MEDS: METOPROLOL 25 MG TAB PO ×2 (08:31→21:22)
[2017-06-20] MEDS: ALLOPURINOL 100 MG TAB PO (08:31)
[2017-06-20] MEDS: MULTIVIT/CA CARB/B CMPLX/FA TAB PO (08:31)
[2017-06-20] MEDS: LORAZEPAM 0.5 MG TAB PO (08:31)
[2017-06-20] MEDS: PREGABALIN 25 MG CAP PO ×2 (08:32→21:18)
[2017-06-20] MEDS: FAMOTIDINE 20 MG TAB PO (08:32)
[2017-06-20] MEDS: CLOPIDOGREL 75 MG TAB PO (08:32)
[2017-06-20] MEDS: ENALAPRIL 5 MG TAB PO (08:32)
[2017-06-20] MEDS: COLLAGENASE 30 GM TUBE TOP (08:32)
[2017-06-20] MEDS: ZINC SULFATE 220 MG CAP PO (08:32)
[2017-06-20] MEDS: SODIUM HYPOCHLORITE 1/40% 1L IRRIG IRR (08:32)
[2017-06-20] MEDS ORDERED: SOD CHLORIDE 0.9% 250 ML IV* ×2 (08:40)
[2017-06-20] MEDS: INSULIN GLARGINE [LANtus] 3 ML PEN SC (08:40)
[2017-06-20 10:45] LABS: IMMEDIATE SPIN CROSSMATCH 1 3
[2017-06-20] MEDS: SOD CHLORIDE 0.9% 250 ML IV* (10:50)
[2017-06-20] MEDS: DAPTOMYCIN 500 MG in SOD CHLORIDE 0.9% 100 ML IVPB (16:37)
[2017-06-20] MEDS: ATORVASTATIN 40 MG TAB PO (21:18)
[2017-06-21] MEDS: HALOPERIDOL 5 MG INJ IM ×2 (00:39→21:55)
[2017-06-21] MEDS: LORAZEPAM 0.5 MG TAB PO (01:11)
[2017-06-21] MEDS: INSULIN ASPART [NOVOLOG] 3 ML PEN SC ×6 (01:45→21:46)
[2017-06-21] MEDS: ACCU-CHEK XX (02:00)
[2017-06-21] MEDS: morphine 2 MG INJ IV (03:35)
[2017-06-21 05:27] LABS: ADD MAN DIFF? NO
[2017-06-21 05:46] LABS: WHITE BLOOD COUNT 11.3 10^3/ul (4.8-10.8)
[2017-06-21 05:46] LABS: BASOPHILS % 0.2 % (0.0-2.0); EOSINOPHILS % 0.2 % (0.0-7.0); HEMATOCRIT 24.8 % (42.0-52.0); HEMOGLOBIN 7.9 g/dl (14.0-18.0); LYMPHOCYTES # 1.4 10^3/ul (0.8-2.9); LYMPHOCYTES % 12.3 % (15.0-51.0); MEAN CORPUSCULAR HEMOGLOBIN 26.5 pg (29.0-33.0); MEAN CORPUSCULAR HGB CONC 31.9 g/dl (32.0-37.0); MEAN CORPUSCULAR VOLUME 83.2 fl (82.0-101.0); MEAN PLATELET VOLUME 11.6 fl (7.4-10.4); MONOCYTE # 1.1 10^3/ul (0.3-0.9); MONOCYTES % 9.4 % (0.0-11.0); NEUTROPHIL # 8.7 10^3/ul (1.6-7.5); NEUTROPHILS % 77.4 % (39.0-77.0); PLATELET COUNT 406 10^3/UL (140-415); RED BLOOD COUNT 2.98 10^6/ul (4.70-6.10); RED CELL DISTRIBUTION WIDTH 15.4 % (11.5-14.5)
[2017-06-21] MEDS: LORAZEPAM 2 MG INJ IV (05:48)
[2017-06-21] MEDS: MEROPENEM 500MG/50 ML (PMX) 50 ML IVPB ×3 (05:49→22:12)
[2017-06-21] MEDS: FUROSEMIDE 40 MG INJ IV ×2 (05:58→17:39)
[2017-06-21 06:12] LABS: ANION GAP 13 (8-16); BLOOD UREA NITROGEN 48 mg/dl (7-20); CALCIUM 8.1 mg/dl (8.4-10.2); CARBON DIOXIDE 38 mmol/L (21-31); CHLORIDE 96 mmol/L (97-110); CREATININE 1.14 mg/dl (0.61-1.24); GLUCOSE 155 mg/dl (70-220); POTASSIUM 3.1 mmol/L (3.5-5.1); SODIUM 144 mmol/L (135-144)
[2017-06-21] MEDS: COLLAGENASE 30 GM TUBE TOP (08:18)
[2017-06-21] MEDS: MULTIVIT/CA CARB/B CMPLX/FA TAB PO (08:18)
[2017-06-21] MEDS: PREGABALIN 25 MG CAP PO ×2 (08:18→19:45)
[2017-06-21] MEDS: CLOPIDOGREL 75 MG TAB PO (08:18)
[2017-06-21] MEDS: FAMOTIDINE 20 MG TAB PO (08:19)
[2017-06-21] MEDS: METOPROLOL 25 MG TAB PO (08:19)
[2017-06-21] MEDS: SODIUM HYPOCHLORITE 1/40% 1L IRRIG IRR (08:19)
[2017-06-21] MEDS: ENALAPRIL 5 MG TAB PO (08:19)
[2017-06-21] MEDS: ALLOPURINOL 100 MG TAB PO (08:19)
[2017-06-21] MEDS: ZINC SULFATE 220 MG CAP PO (08:19)
[2017-06-21] MEDS: INSULIN GLARGINE [LANtus] 3 ML PEN SC (08:20)
[2017-06-21] MEDS: POTASSIUM CHLORIDE 20 MEQ POWDER FOR ORAL SOLN PO (10:13)
[2017-06-21 12:14] LABS: AADO2 Arterial 83.7 mmHg (7.0-24.0); Allen Test ACCEPTAB; Arterial Base Excess 14.9 mmol/L (-3.0-3); Arterial Blood Gas Oxygen Sat 97.3 mmHG (95.0-100.0); Arterial COHb 0.2 % (0.0-3.0); Arterial Fraction of Oxyhgb 96.8 % (93.0-99.0); Arterial HCO3 39.6 mmol/L (22.0-26.0); Arterial MetHb 0.3 % (0.0-1.5); Arterial Total Hemglobin 11.8 g/dl (12.0-18.0); Arterial pCO2 48.8 mmhg (35-45); MODE NASAL CANNULA; Site Right Radial
[2017-06-21] MEDS: SUCRALFATE (100 MG/ML) 10ML CUP PO ×3 (12:51→19:45)
[2017-06-21] MEDS: PANTOPRAZOLE IV 80 MG in SOD CHLORIDE 0.9% 100 ML IV (13:01)
[2017-06-21] MEDS: PANTOPRAZOLE IV 80 MG in SOD CHLORIDE 0.9% 100 ML IVPB (13:01)
[2017-06-21] MEDS ORDERED: POTASSIUM CHLORIDE (SR) 20 MEQ TAB PO (13:43)
[2017-06-21] MEDS: LIDOCAINE 1% (MPF) 5 ML VIAL SC (15:15)
[2017-06-21] MEDS: SOD CHLORIDE 0.9% 100 ML (15:40)
[2017-06-21] MEDS: ACETAMINOPHEN 325 MG TAB PO (15:58)
[2017-06-21] MEDS: DAPTOMYCIN 500 MG in SOD CHLORIDE 0.9% 100 ML IVPB (16:06)
[2017-06-21] MEDS: ATORVASTATIN 40 MG TAB PO (19:45)
[2017-06-21] MEDS: METOPROLOL 50 MG TAB PO (23:00)
[2017-06-22] MEDS: PANTOPRAZOLE IV 80 MG in SOD CHLORIDE 0.9% 100 ML IV ×3 (00:31→21:51)
[2017-06-22] MEDS: INSULIN ASPART [NOVOLOG] 3 ML PEN SC ×6 (01:00→20:58)
[2017-06-22] MEDS: ACCU-CHEK XX (02:00)
[2017-06-22 05:20] LABS: ADD MAN DIFF? NO
[2017-06-22 05:26] LABS: WHITE BLOOD COUNT 12.9 10^3/ul (4.8-10.8)
[2017-06-22 05:26] LABS: BASOPHILS % 0.1 % (0.0-2.0); EOSINOPHILS # 0.1 10^3/ul (0.0-0.5); EOSINOPHILS % 0.9 % (0.0-7.0); HEMATOCRIT 29.1 % (42.0-52.0); HEMOGLOBIN 9.1 g/dl (14.0-18.0); LYMPHOCYTES # 1.9 10^3/ul (0.8-2.9); LYMPHOCYTES % 14.8 % (15.0-51.0); MEAN CORPUSCULAR HEMOGLOBIN 26.6 pg (29.0-33.0); MEAN CORPUSCULAR HGB CONC 31.3 g/dl (32.0-37.0); MEAN CORPUSCULAR VOLUME 85.1 fl (82.0-101.0); MEAN PLATELET VOLUME 11.5 fl (7.4-10.4); MONOCYTES % 7.7 % (0.0-11.0); NEUTROPHIL # 9.8 10^3/ul (1.6-7.5); NEUTROPHILS % 75.6 % (39.0-77.0); PLATELET COUNT 423 10^3/UL (140-415); RED BLOOD COUNT 3.42 10^6/ul (4.70-6.10); RED CELL DISTRIBUTION WIDTH 15.2 % (11.5-14.5)
[2017-06-22 06:00] LABS: ALANINE AMINOTRANSFERASE 70 IU/L (13-69); ALBUMIN 2.6 g/dl (3.3-4.9); ALBUMIN/GLOBULIN RATIO 0.65; ALKALINE PHOSPHATASE 96 IU/L (42-121); ASPARTATE AMINO TRANSFERASE 82 IU/L (15-46); BILIRUBIN,INDIRECT 0.8 mg/dl (0-1.1); BILIRUBIN,TOTAL 0.8 mg/dl (0.2-1.3); BLOOD UREA NITROGEN 40 mg/dl (7-20); CALCIUM 8.1 mg/dl (8.4-10.2); CHLORIDE 93 mmol/L (97-110); CREATININE 1.26 mg/dl (0.61-1.24); GLUCOSE 120 mg/dl (70-220); SODIUM 141 mmol/L (135-144); TOTAL PROTEIN 6.6 g/dl (6.1-8.1)
[2017-06-22] MEDS ORDERED: PANTOPRAZOLE 40 MG INJ IV (06:00)
[2017-06-22 06:07] LABS: ANION GAP 11 (8-16)
[2017-06-22 06:23] LABS: CARBON DIOXIDE 40 mmol/L (21-31); POTASSIUM 2.9 mmol/L (3.5-5.1)
[2017-06-22] MEDS: MEROPENEM 500MG/50 ML (PMX) 50 ML IVPB ×3 (06:32→21:51)
[2017-06-22 06:55] LABS: MAGNESIUM 1.7 mg/dl (1.7-2.5)
[2017-06-22] MEDS: ENALAPRIL 5 MG TAB PO (08:36)
[2017-06-22] MEDS: CLOPIDOGREL 75 MG TAB PO (08:36)
[2017-06-22] MEDS: PREGABALIN 25 MG CAP PO ×2 (08:36→20:42)
[2017-06-22] MEDS: ALLOPURINOL 100 MG TAB PO (08:36)
[2017-06-22] MEDS: MULTIVIT/CA CARB/B CMPLX/FA TAB PO (08:36)
[2017-06-22] MEDS: POTASSIUM CHLORIDE 250 ML IVPB (08:37)
[2017-06-22] MEDS: SUCRALFATE (100 MG/ML) 10ML CUP PO ×4 (08:37→20:42)
[2017-06-22] MEDS: METOPROLOL 50 MG TAB PO ×3 (08:38→20:42)
[2017-06-22] MEDS: INSULIN GLARGINE [LANtus] 3 ML PEN SC (08:49)
[2017-06-22] MEDS: ZINC SULFATE 220 MG CAP PO (09:11)
[2017-06-22] MEDS: LORAZEPAM 0.5 MG TAB PO ×2 (09:12→20:42)
[2017-06-22] MEDS: ALBUTEROL/IPRATROPIUM (NEB) 3 ML AMP HHN (10:40)
[2017-06-22] MEDS: COLLAGENASE 30 GM TUBE TOP (11:10)
[2017-06-22] MEDS: SODIUM HYPOCHLORITE 1/40% 1L IRRIG IRR (11:11)
[2017-06-22] MEDS: FUROSEMIDE 40 MG INJ IV ×2 (12:34→18:16)
[2017-06-22 13:41] LABS: POTASSIUM 3.2 mmol/L (3.5-5.1)
[2017-06-22] MEDS: DAPTOMYCIN 500 MG in SOD CHLORIDE 0.9% 100 ML IVPB (16:22)
[2017-06-22] MEDS: POTASSIUM CHLORIDE (SR) 20 MEQ TAB PO (16:33)
[2017-06-22 17:52] LABS: MAGNESIUM 1.6 mg/dl (1.7-2.5)
[2017-06-22 18:29] LABS: CREATINE KINASE 42 IU/L (23-200)
[2017-06-22 18:42] LABS: CK INDEX 1.7
[2017-06-22 18:43] LABS: CK-MB 0.72 ng/ml (0.0-2.4)
[2017-06-22] MEDS: MAGNESIUM SULFATE 2 GM/50 ML 50 ML IVPB (19:05)
[2017-06-22] MEDS: ATORVASTATIN 40 MG TAB PO (20:42)
[2017-06-23] MEDS: LORAZEPAM 2 MG INJ IV ×3 (00:58→20:53)
[2017-06-23] MEDS: INSULIN ASPART [NOVOLOG] 3 ML PEN SC ×6 (01:00→21:00)
[2017-06-23] MEDS: HALOPERIDOL 5 MG INJ IM ×2 (01:02→22:47)
[2017-06-23] MEDS: ACCU-CHEK XX (01:22)
[2017-06-23 01:56] LABS: CREATINE KINASE 40 IU/L (23-200)
[2017-06-23 02:03] LABS: CK INDEX 2.1
[2017-06-23 02:09] LABS: CK-MB 0.85 ng/ml (0.0-2.4)
[2017-06-23 04:55] LABS: ADD MAN DIFF? NO
[2017-06-23 04:57] LABS: BASOPHILS % 0.2 % (0.0-2.0); EOSINOPHILS # 0.1 10^3/ul (0.0-0.5); EOSINOPHILS % 0.5 % (0.0-7.0); HEMATOCRIT 29.5 % (42.0-52.0); HEMOGLOBIN 9.1 g/dl (14.0-18.0); LYMPHOCYTES # 2.1 10^3/ul (0.8-2.9); MEAN CORPUSCULAR HEMOGLOBIN 26.5 pg (29.0-33.0); MEAN CORPUSCULAR HGB CONC 30.8 g/dl (32.0-37.0); MEAN CORPUSCULAR VOLUME 85.8 fl (82.0-101.0); MEAN PLATELET VOLUME 11.4 fl (7.4-10.4); MONOCYTE # 0.9 10^3/ul (0.3-0.9); NEUTROPHIL # 9.8 10^3/ul (1.6-7.5); NEUTROPHILS % 75.3 % (39.0-77.0); PLATELET COUNT 410 10^3/UL (140-415); RED BLOOD COUNT 3.44 10^6/ul (4.70-6.10); RED CELL DISTRIBUTION WIDTH 15.7 % (11.5-14.5)
[2017-06-23 04:57] LABS: WHITE BLOOD COUNT 13.1 10^3/ul (4.8-10.8)
[2017-06-23 05:18] LABS: BLOOD UREA NITROGEN 39 mg/dl (7-20); CALCIUM 8.3 mg/dl (8.4-10.2); CHLORIDE 98 mmol/L (97-110); CREATININE 1.44 mg/dl (0.61-1.24); GLUCOSE 117 mg/dl (70-220); MAGNESIUM 2.3 mg/dl (1.7-2.5); POTASSIUM 3.3 mmol/L (3.5-5.1); SODIUM 147 mmol/L (135-144)
[2017-06-23 05:24] LABS: ANION GAP 13 (8-16)
[2017-06-23 05:27] LABS: B-TYPE NATRIURETIC PEPTIDE 11300 PG/ML (0-125)
[2017-06-23 05:28] LABS: CARBON DIOXIDE 39 mmol/L (21-31)
[2017-06-23] MEDS: MEROPENEM 500MG/50 ML (PMX) 50 ML IVPB ×3 (05:55→22:10)
[2017-06-23] MEDS: FUROSEMIDE 20 MG INJ IV (05:56)
[2017-06-23] MEDS: PANTOPRAZOLE IV 80 MG in SOD CHLORIDE 0.9% 100 ML IV ×2 (07:58→14:15)
[2017-06-23] MEDS: INSULIN GLARGINE [LANtus] 3 ML PEN SC (08:59)
[2017-06-23] MEDS: ENALAPRIL 5 MG TAB PO (09:00)
[2017-06-23] MEDS: MULTIVIT/CA CARB/B CMPLX/FA TAB PO (09:00)
[2017-06-23] MEDS: ALLOPURINOL 100 MG TAB PO (09:00)
[2017-06-23] MEDS: SUCRALFATE (100 MG/ML) 10ML CUP PO ×4 (09:00→20:48)
[2017-06-23] MEDS: METOPROLOL 50 MG TAB PO ×2 (09:00→20:48)
[2017-06-23] MEDS: PREGABALIN 25 MG CAP PO ×2 (09:00→20:49)
[2017-06-23] MEDS: CLOPIDOGREL 75 MG TAB PO (09:00)
[2017-06-23] MEDS: ZINC SULFATE 220 MG CAP PO (09:00)
[2017-06-23] MEDS: COLLAGENASE 30 GM TUBE TOP (09:02)
[2017-06-23] MEDS: SODIUM HYPOCHLORITE 1/40% 1L IRRIG IRR (09:02)
[2017-06-23] MEDS ORDERED: SOD CHLORIDE 0.9% 1,000 ML IV (10:00)
[2017-06-23] MEDS: POTASSIUM CHLORIDE 250 ML IVPB (10:31)
[2017-06-23] MEDS: DEXTROSE 50% 50 ML SYRINGE IV (12:41)
[2017-06-23] MEDS: morphine 2 MG INJ IV (13:18)
[2017-06-23] MEDS: DAPTOMYCIN 500 MG in SOD CHLORIDE 0.9% 100 ML IVPB (16:32)
[2017-06-23] MEDS: DEXTROSE 5% 1,000 ML IV (17:34)
[2017-06-23] MEDS: ATORVASTATIN 40 MG TAB PO (20:48)
[2017-06-23] MEDS: METOPROLOL 5 MG INJ IV (20:54)
[2017-06-24] MEDS ORDERED: LORAZEPAM 2 MG INJ IM (01:00)
[2017-06-24] MEDS: INSULIN ASPART [NOVOLOG] 3 ML PEN SC ×6 (01:00→20:48)
[2017-06-24] MEDS: HALOPERIDOL 5 MG INJ IM (01:12)
[2017-06-24] MEDS: ACCU-CHEK XX (01:31)
[2017-06-24] MEDS: LORAZEPAM 2 MG INJ IV (01:31)
[2017-06-24] MEDS: DEXTROSE 50% 50 ML SYRINGE IV (04:47)
[2017-06-24 05:43] LABS: ADD MAN DIFF? NO
[2017-06-24 05:48] LABS: BASOPHILS % 0.2 % (0.0-2.0); EOSINOPHILS # 0.1 10^3/ul (0.0-0.5); EOSINOPHILS % 1.1 % (0.0-7.0); HEMATOCRIT 29.4 % (42.0-52.0); LYMPHOCYTES # 2.2 10^3/ul (0.8-2.9); LYMPHOCYTES % 19.2 % (15.0-51.0); MEAN CORPUSCULAR HEMOGLOBIN 26.8 pg (29.0-33.0); MEAN CORPUSCULAR HGB CONC 30.6 g/dl (32.0-37.0); MEAN CORPUSCULAR VOLUME 87.5 fl (82.0-101.0); MEAN PLATELET VOLUME 11.3 fl (7.4-10.4); MONOCYTE # 0.9 10^3/ul (0.3-0.9); MONOCYTES % 7.7 % (0.0-11.0); NEUTROPHIL # 8.1 10^3/ul (1.6-7.5); NEUTROPHILS % 71.1 % (39.0-77.0); PLATELET COUNT 376 10^3/UL (140-415); RED BLOOD COUNT 3.36 10^6/ul (4.70-6.10); RED CELL DISTRIBUTION WIDTH 15.8 % (11.5-14.5)
[2017-06-24 05:48] LABS: WHITE BLOOD COUNT 11.3 10^3/ul (4.8-10.8)
[2017-06-24] MEDS: MEROPENEM 500MG/50 ML (PMX) 50 ML IVPB ×3 (06:04→22:58)
[2017-06-24] MEDS: PANTOPRAZOLE 40 MG INJ IV ×2 (06:04→20:57)
[2017-06-24 07:17] LABS: BLOOD UREA NITROGEN 32 mg/dl (7-20); CALCIUM 8.4 mg/dl (8.4-10.2); CHLORIDE 101 mmol/L (97-110); CREATININE 1.25 mg/dl (0.61-1.24); GLUCOSE 68 mg/dl (70-220); MAGNESIUM 2.2 mg/dl (1.7-2.5); PHOSPHORUS 2.5 mg/dl (2.5-4.9); POTASSIUM 3.2 mmol/L (3.5-5.1); SODIUM 148 mmol/L (135-144)
[2017-06-24 07:24] LABS: ANION GAP 11 (8-16)
[2017-06-24] MEDS: INSULIN GLARGINE [LANtus] 3 ML PEN SC (08:00)
[2017-06-24] MEDS: CLOPIDOGREL 75 MG TAB PO (09:00)
[2017-06-24] MEDS: ALLOPURINOL 100 MG TAB PO (09:00)
[2017-06-24] MEDS: MULTIVIT/CA CARB/B CMPLX/FA TAB PO (09:00)
[2017-06-24] MEDS: ZINC SULFATE 220 MG CAP PO (09:00)
[2017-06-24] MEDS: SUCRALFATE (100 MG/ML) 10ML CUP PO ×4 (09:00→20:57)
[2017-06-24] MEDS: METOPROLOL 50 MG TAB PO ×2 (09:00→20:57)
[2017-06-24] MEDS: PREGABALIN 25 MG CAP PO ×2 (09:00→20:57)
[2017-06-24] MEDS: ENALAPRIL 5 MG TAB PO (09:00)
[2017-06-24] MEDS: DEXTROSE 5%-0.45% NACL 500 ML BAG IV (09:42)
[2017-06-24] MEDS: COLLAGENASE 30 GM TUBE TOP (09:43)
[2017-06-24] MEDS: DEXTROSE 5%-0.45% NACL 1,000 ML IV ×2 (09:47→23:20)
[2017-06-24] MEDS: SODIUM HYPOCHLORITE 1/40% 1L IRRIG IRR (09:52)
[2017-06-24] MEDS: POTASSIUM CHLORIDE 250 ML IVPB (11:12)
[2017-06-24 12:24] LABS: AADO2 Arterial 92.7 mmHg (7.0-24.0); Allen Test ACCEPTAB; Arterial Blood Gas Oxygen Sat 93.7 mmHG (95.0-100.0); Arterial COHb 0.1 % (0.0-3.0); Arterial Fraction of Oxyhgb 93.3 % (93.0-99.0); Arterial HCO3 36.3 mmol/L (22.0-26.0); Arterial MetHb 0.3 % (0.0-1.5); Arterial Total Hemglobin 10.5 g/dl (12.0-18.0); Arterial pCO2 46.2 mmhg (35-45); MODE NASAL CANNULA; Site Right Radial
[2017-06-24] MEDS: DAPTOMYCIN 500 MG in SOD CHLORIDE 0.9% 100 ML IVPB (16:49)
[2017-06-24] MEDS: ATORVASTATIN 40 MG TAB PO (20:57)
[2017-06-25] MEDS: INSULIN ASPART [NOVOLOG] 3 ML PEN SC ×6 (01:00→21:33)
[2017-06-25] MEDS: ACCU-CHEK XX (02:00)
[2017-06-25] MEDS: MEROPENEM 500MG/50 ML (PMX) 50 ML IVPB ×3 (05:30→23:25)
[2017-06-25] MEDS: DEXTROSE 5%-0.45% NACL 1,000 ML IV ×2 (05:30→11:42)
[2017-06-25] MEDS: ZINC SULFATE 220 MG CAP PO (09:00)
[2017-06-25] MEDS: METOPROLOL 50 MG TAB PO (09:00)
[2017-06-25] MEDS: CLOPIDOGREL 75 MG TAB PO (09:00)
[2017-06-25] MEDS: ENALAPRIL 5 MG TAB PO (09:00)
[2017-06-25] MEDS: SUCRALFATE (100 MG/ML) 10ML CUP PO ×4 (09:00→21:00)
[2017-06-25] MEDS: MULTIVIT/CA CARB/B CMPLX/FA TAB PO (09:00)
[2017-06-25] MEDS: ALLOPURINOL 100 MG TAB PO (09:00)
[2017-06-25] MEDS: PREGABALIN 25 MG CAP PO ×2 (09:00→21:00)
[2017-06-25] MEDS ORDERED: hydrALAzine 20 MG INJ IV ×2 (09:30→10:30)
[2017-06-25] MEDS: PANTOPRAZOLE 40 MG INJ IV ×2 (09:42→21:24)
[2017-06-25 09:58] LABS: AADO2 Arterial 76.3 mmHg (7.0-24.0); Arterial Base Excess 10.1 mmol/L (-3.0-3); Arterial COHb 0.2 % (0.0-3.0); Arterial Fraction of Oxyhgb 93.9 % (93.0-99.0); Arterial HCO3 33.6 mmol/L (22.0-26.0); Arterial MetHb 0.3 % (0.0-1.5); Arterial pCO2 40.5 mmhg (35-45); MODE NASAL CANNULA; Site Right Brachial
[2017-06-25 11:03] LABS: ADD MAN DIFF? NO
[2017-06-25 11:16] LABS: WHITE BLOOD COUNT 11.2 10^3/ul (4.8-10.8)
[2017-06-25 11:16] LABS: BASOPHILS % 0.1 % (0.0-2.0); EOSINOPHILS # 0.2 10^3/ul (0.0-0.5); EOSINOPHILS % 1.3 % (0.0-7.0); HEMATOCRIT 29.5 % (42.0-52.0); HEMOGLOBIN 8.9 g/dl (14.0-18.0); LYMPHOCYTES # 1.9 10^3/ul (0.8-2.9); MEAN CORPUSCULAR HEMOGLOBIN 26.6 pg (29.0-33.0); MEAN CORPUSCULAR HGB CONC 30.2 g/dl (32.0-37.0); MEAN CORPUSCULAR VOLUME 88.1 fl (82.0-101.0); MEAN PLATELET VOLUME 11.2 fl (7.4-10.4); MONOCYTE # 0.8 10^3/ul (0.3-0.9); MONOCYTES % 6.7 % (0.0-11.0); NEUTROPHIL # 8.3 10^3/ul (1.6-7.5); NEUTROPHILS % 74.2 % (39.0-77.0); PLATELET COUNT 357 10^3/UL (140-415); RED BLOOD COUNT 3.35 10^6/ul (4.70-6.10); RED CELL DISTRIBUTION WIDTH 15.6 % (11.5-14.5)
[2017-06-25] MEDS: SODIUM HYPOCHLORITE 1/40% 1L IRRIG IRR (11:41)
[2017-06-25] MEDS: LABETALOL HCL 20MG INJ IV ×3 (11:41→23:48)
[2017-06-25] MEDS: COLLAGENASE 30 GM TUBE TOP (11:41)
[2017-06-25 11:43] LABS: ANION GAP 11 (8-16); BLOOD UREA NITROGEN 19 mg/dl (7-20); CALCIUM 8.4 mg/dl (8.4-10.2); CARBON DIOXIDE 36 mmol/L (21-31); CHLORIDE 104 mmol/L (97-110); CREATININE 1.08 mg/dl (0.61-1.24); GLUCOSE 154 mg/dl (70-220); MAGNESIUM 2.1 mg/dl (1.7-2.5); POTASSIUM 3.8 mmol/L (3.5-5.1); SODIUM 147 mmol/L (135-144)
[2017-06-25] MEDS: ENOXAPARIN 100 MG/ML SYG SC (11:43)
[2017-06-25] MEDS: DAPTOMYCIN 500 MG in SOD CHLORIDE 0.9% 100 ML IVPB (16:29)
[2017-06-25] MEDS: ATORVASTATIN 40 MG TAB PO (21:00)
[2017-06-26] MEDS: INSULIN ASPART [NOVOLOG] 3 ML PEN SC ×6 (01:04→21:46)
[2017-06-26] MEDS: ACCU-CHEK XX (02:00)
[2017-06-26] MEDS: DEXTROSE 5%-0.45% NACL 1,000 ML IV (04:36)
[2017-06-26] MEDS: LABETALOL HCL 20MG INJ IV ×4 (04:55→21:49)
[2017-06-26 05:31] LABS: ADD MAN DIFF? NO
[2017-06-26 05:44] LABS: WHITE BLOOD COUNT 10.6 10^3/ul (4.8-10.8)
[2017-06-26 05:44] LABS: BASOPHILS % 0.2 % (0.0-2.0); EOSINOPHILS # 0.1 10^3/ul (0.0-0.5); EOSINOPHILS % 1.1 % (0.0-7.0); HEMATOCRIT 29.5 % (42.0-52.0); HEMOGLOBIN 8.8 g/dl (14.0-18.0); LYMPHOCYTES # 1.9 10^3/ul (0.8-2.9); LYMPHOCYTES % 17.7 % (15.0-51.0); MEAN CORPUSCULAR HEMOGLOBIN 26.4 pg (29.0-33.0); MEAN CORPUSCULAR HGB CONC 29.8 g/dl (32.0-37.0); MEAN CORPUSCULAR VOLUME 88.6 fl (82.0-101.0); MEAN PLATELET VOLUME 11.6 fl (7.4-10.4); MONOCYTE # 0.8 10^3/ul (0.3-0.9); MONOCYTES % 7.8 % (0.0-11.0); NEUTROPHIL # 7.6 10^3/ul (1.6-7.5); NEUTROPHILS % 72.4 % (39.0-77.0); PLATELET COUNT 370 10^3/UL (140-415); RED BLOOD COUNT 3.33 10^6/ul (4.70-6.10); RED CELL DISTRIBUTION WIDTH 15.4 % (11.5-14.5)
[2017-06-26 06:13] LABS: ANION GAP 11 (8-16); BLOOD UREA NITROGEN 17 mg/dl (7-20); CALCIUM 8.3 mg/dl (8.4-10.2); CARBON DIOXIDE 33 mmol/L (21-31); CHLORIDE 107 mmol/L (97-110); CREATININE 1.07 mg/dl (0.61-1.24); GLUCOSE 211 mg/dl (70-220); POTASSIUM 3.8 mmol/L (3.5-5.1); SODIUM 147 mmol/L (135-144)
[2017-06-26] MEDS: MEROPENEM 500MG/50 ML (PMX) 50 ML IVPB ×3 (06:22→21:58)
[2017-06-26] MEDS: CLOPIDOGREL 75 MG TAB PO (09:00)
[2017-06-26] MEDS: PREGABALIN 25 MG CAP PO ×2 (09:00→21:00)
[2017-06-26] MEDS: ALLOPURINOL 100 MG TAB PO (09:20)
[2017-06-26] MEDS: PANTOPRAZOLE 40 MG INJ IV ×2 (09:20→21:31)
[2017-06-26] MEDS: SUCRALFATE (100 MG/ML) 10ML CUP PO ×4 (09:20→21:31)
[2017-06-26] MEDS: ENALAPRIL 5 MG TAB PO (09:20)
[2017-06-26] MEDS: MULTIVIT/CA CARB/B CMPLX/FA TAB PO (09:20)
[2017-06-26] MEDS: SODIUM HYPOCHLORITE 1/40% 1L IRRIG IRR (09:21)
[2017-06-26] MEDS: COLLAGENASE 30 GM TUBE TOP (09:22)
[2017-06-26] MEDS: REGADENOSON 0.4 MG/5 ML SYG (11:20)
[2017-06-26] MEDS ORDERED: DEXTROSE 5% 1,000 ML IV (11:30)
[2017-06-26] MEDS: SOD CHLORIDE 0.45% 1,000 ML IV (12:13)
[2017-06-26] MEDS: DAPTOMYCIN 500 MG in SOD CHLORIDE 0.9% 100 ML IVPB (16:43)
[2017-06-26] MEDS: ATORVASTATIN 40 MG TAB PO (21:31)
[2017-06-27] MEDS: INSULIN ASPART [NOVOLOG] 3 ML PEN SC ×6 (01:28→21:38)
[2017-06-27] MEDS: SOD CHLORIDE 0.45% 1,000 ML IV ×2 (01:28→14:40)
[2017-06-27] MEDS: ACCU-CHEK XX (02:00)
[2017-06-27] MEDS: LABETALOL HCL 20MG INJ IV ×4 (04:17→23:10)
[2017-06-27] MEDS: MEROPENEM 500MG/50 ML (PMX) 50 ML IVPB ×3 (05:15→21:31)
[2017-06-27 05:20] LABS: ADD MAN DIFF? NO
[2017-06-27 05:27] LABS: BASOPHILS % 0.1 % (0.0-2.0); EOSINOPHILS # 0.2 10^3/ul (0.0-0.5); EOSINOPHILS % 1.9 % (0.0-7.0); HEMATOCRIT 28.2 % (42.0-52.0); HEMOGLOBIN 8.5 g/dl (14.0-18.0); LYMPHOCYTES # 2.2 10^3/ul (0.8-2.9); LYMPHOCYTES % 21.1 % (15.0-51.0); MEAN CORPUSCULAR HEMOGLOBIN 26.6 pg (29.0-33.0); MEAN CORPUSCULAR HGB CONC 30.1 g/dl (32.0-37.0); MEAN CORPUSCULAR VOLUME 88.1 fl (82.0-101.0); MEAN PLATELET VOLUME 11.4 fl (7.4-10.4); MONOCYTE # 0.8 10^3/ul (0.3-0.9); MONOCYTES % 7.6 % (0.0-11.0); NEUTROPHIL # 7.1 10^3/ul (1.6-7.5); NEUTROPHILS % 68.5 % (39.0-77.0); PLATELET COUNT 332 10^3/UL (140-415); RED CELL DISTRIBUTION WIDTH 15.5 % (11.5-14.5)
[2017-06-27 05:27] LABS: WHITE BLOOD COUNT 10.3 10^3/ul (4.8-10.8)
[2017-06-27 05:38] LABS: INR 1.17; PROTIME 15.1 Sec (11.9-14.9); PT RATIO 1.2
[2017-06-27 05:39] LABS: PARTIAL THROMBOPLASTIN TIME 46.1 Sec (25.0-35.0)
[2017-06-27 05:56] LABS: ANION GAP 12 (8-16); BLOOD UREA NITROGEN 16 mg/dl (7-20); CALCIUM 8.1 mg/dl (8.4-10.2); CARBON DIOXIDE 29 mmol/L (21-31); CHLORIDE 107 mmol/L (97-110); CREATININE 0.93 mg/dl (0.61-1.24); GLUCOSE 136 mg/dl (70-220); POTASSIUM 4.1 mmol/L (3.5-5.1); SODIUM 144 mmol/L (135-144)
[2017-06-27 08:33] LABS: AADO2 Arterial 63.8 mmHg (7.0-24.0); Allen Test ACCEPTAB; Arterial Blood Gas Oxygen Sat 96.6 mmHG (95.0-100.0); Arterial COHb 0.7 % (0.0-3.0); Arterial Fraction of Oxyhgb 95.6 % (93.0-99.0); Arterial HCO3 25.5 mmol/L (22.0-26.0); Arterial MetHb 0.3 % (0.0-1.5); Arterial Total Hemglobin 10.6 g/dl (12.0-18.0); Arterial pCO2 35.4 mmhg (35-45); MODE NASAL CANNULA; Site Right Radial
[2017-06-27] MEDS: COLLAGENASE 30 GM TUBE TOP (09:00)
[2017-06-27] MEDS: ENOXAPARIN 40 MG/0.4 ML SYG SC (09:00)
[2017-06-27] MEDS: SODIUM HYPOCHLORITE 1/40% 1L IRRIG IRR (09:00)
[2017-06-27] MEDS: CLOPIDOGREL 75 MG TAB PO (09:00)
[2017-06-27] MEDS: SUCRALFATE (100 MG/ML) 10ML CUP PO ×4 (10:12→20:34)
[2017-06-27] MEDS: ALLOPURINOL 100 MG TAB PO (10:12)
[2017-06-27] MEDS: PREGABALIN 25 MG CAP PO ×2 (10:12→20:34)
[2017-06-27] MEDS: MULTIVIT/CA CARB/B CMPLX/FA TAB PO (10:12)
[2017-06-27] MEDS: ENALAPRIL 5 MG TAB PO (10:13)
[2017-06-27] MEDS: PANTOPRAZOLE 40 MG INJ IV ×2 (10:13→20:34)
[2017-06-27] MEDS: POLYMYXIN/BACITRACIN 1L IRRIG IRR (13:57)
[2017-06-27] MEDS ORDERED: MIDAZOLAM 1 MG/ML 2 ML INJ (14:40)
[2017-06-27] MEDS ORDERED: PHENYLephrine (100 MCG/ML) 5ML SYG ×2 (14:54→15:46)
[2017-06-27] MEDS ORDERED: CEFAZOLIN 1 GM INJ (16:38)
[2017-06-27] MEDS ORDERED: ETOMIDATE 20 MG INJ (16:38)
[2017-06-27] MEDS ORDERED: LIDOCAINE 2% (SDV) 5 ML INJ (16:38)
[2017-06-27] MEDS: SOD CHLORIDE 0.9% 1,000 ML IV (17:06)
[2017-06-27] MEDS: morphine 2 MG INJ IV ×2 (18:05→23:17)
[2017-06-27] MEDS: DAPTOMYCIN 500 MG in SOD CHLORIDE 0.9% 100 ML IVPB (19:30)
[2017-06-27] MEDS: ATORVASTATIN 40 MG TAB PO (20:34)
[2017-06-27] MEDS: METOPROLOL 25 MG TAB PO (21:00)
[2017-06-27] MEDS: HEPARIN 5,000 UNIT/0.5 ML VIAL SC (21:39)
[2017-06-27] MEDS: FUROSEMIDE 20 MG INJ IV (23:10)
[2017-06-27 23:13] LABS: AADO2 Arterial 165.1 mmHg (7.0-24.0); Allen Test ACCEPTAB; Arterial Base Excess 0.9 mmol/L (-3.0-3); Arterial Blood Gas Oxygen Sat 87.8 mmHG (95.0-100.0); Arterial COHb 0.2 % (0.0-3.0); Arterial Fraction of Oxyhgb 87.5 % (93.0-99.0); Arterial HCO3 26.5 mmol/L (22.0-26.0); Arterial MetHb 0.1 % (0.0-1.5); Arterial Total Hemglobin 9.3 g/dl (12.0-18.0); Arterial pCO2 47.1 mmhg (35-45); MODE NASAL CANNULA; Site Right Radial
[2017-06-28] MEDS: INSULIN ASPART [NOVOLOG] 3 ML PEN SC ×6 (02:04→22:31)
[2017-06-28] MEDS: ACCU-CHEK XX (02:05)
[2017-06-28 02:07] LABS: AADO2 Arterial 166.4 mmHg (7.0-24.0); Allen Test ACCEPTAB; Arterial Base Excess 4.5 mmol/L (-3.0-3); Arterial Blood Gas Oxygen Sat 99.6 mmHG (95.0-100.0); Arterial COHb 0.3 % (0.0-3.0); Arterial HCO3 29.6 mmol/L (22.0-26.0); Arterial MetHb 0.3 % (0.0-1.5); Arterial Total Hemglobin 9.7 g/dl (12.0-18.0); Blood Gas IEPAP 15/5; Blood Gas PS 10; MODE MASK - BIPAP; Site Right Radial
[2017-06-28] MEDS: SOD CHLORIDE 0.45% 1,000 ML IV ×3 (04:00→21:30)
[2017-06-28] MEDS: LABETALOL HCL 20MG INJ IV ×4 (04:20→23:29)
[2017-06-28 05:44] LABS: ADD MAN DIFF? NO
[2017-06-28 06:02] LABS: WHITE BLOOD COUNT 11.4 10^3/ul (4.8-10.8)
[2017-06-28 06:02] LABS: BASOPHILS % 0.1 % (0.0-2.0); EOSINOPHILS # 0.1 10^3/ul (0.0-0.5); EOSINOPHILS % 1.2 % (0.0-7.0); HEMATOCRIT 27.1 % (42.0-52.0); HEMOGLOBIN 8.2 g/dl (14.0-18.0); LYMPHOCYTES # 2.1 10^3/ul (0.8-2.9); LYMPHOCYTES % 18.3 % (15.0-51.0); MEAN CORPUSCULAR HEMOGLOBIN 26.5 pg (29.0-33.0); MEAN CORPUSCULAR HGB CONC 30.3 g/dl (32.0-37.0); MEAN CORPUSCULAR VOLUME 87.4 fl (82.0-101.0); MEAN PLATELET VOLUME 11.7 fl (7.4-10.4); MONOCYTE # 0.9 10^3/ul (0.3-0.9); MONOCYTES % 7.7 % (0.0-11.0); NEUTROPHIL # 8.2 10^3/ul (1.6-7.5); NEUTROPHILS % 71.9 % (39.0-77.0); PLATELET COUNT 348 10^3/UL (140-415); RED CELL DISTRIBUTION WIDTH 15.6 % (11.5-14.5)
[2017-06-28 06:31] LABS: MAGNESIUM 1.8 mg/dl (1.7-2.5)
[2017-06-28 06:31] LABS: PHOSPHORUS 3.3 mg/dl (2.5-4.9)
[2017-06-28 06:34] LABS: ANION GAP 13 (8-16); BLOOD UREA NITROGEN 17 mg/dl (7-20); CARBON DIOXIDE 28 mmol/L (21-31); CHLORIDE 108 mmol/L (97-110); CREATININE 1.09 mg/dl (0.61-1.24); GLUCOSE 157 mg/dl (70-220); POTASSIUM 3.9 mmol/L (3.5-5.1); SODIUM 145 mmol/L (135-144)
[2017-06-28] MEDS: MEROPENEM 500MG/50 ML (PMX) 50 ML IVPB ×3 (07:41→22:27)
[2017-06-28] MEDS: HEPARIN 5,000 UNIT/0.5 ML VIAL SC ×3 (07:43→23:33)
[2017-06-28] MEDS: morphine 2 MG INJ IV (07:49)
[2017-06-28] MEDS: SUCRALFATE (100 MG/ML) 10ML CUP PO ×4 (11:02→21:26)
[2017-06-28] MEDS: PANTOPRAZOLE 40 MG INJ IV ×2 (11:02→21:26)
[2017-06-28] MEDS: CLOPIDOGREL 75 MG TAB PO (11:03)
[2017-06-28] MEDS: PREGABALIN 25 MG CAP PO ×2 (11:03→21:26)
[2017-06-28] MEDS: ENALAPRIL 5 MG TAB PO (11:03)
[2017-06-28] MEDS: MULTIVIT/CA CARB/B CMPLX/FA TAB PO (11:04)
[2017-06-28] MEDS: METOPROLOL 25 MG TAB PO ×2 (11:04→21:26)
[2017-06-28] MEDS: ALLOPURINOL 100 MG TAB PO (11:04)
[2017-06-28] MEDS: HYDROCODONE/APAP (5/325) TAB PO (11:23)
[2017-06-28] MEDS: FUROSEMIDE 20 MG INJ IV (15:26)
[2017-06-28] MEDS: DAPTOMYCIN 500 MG in SOD CHLORIDE 0.9% 100 ML IVPB (18:46)
[2017-06-28] MEDS: ATORVASTATIN 40 MG TAB PO (21:26)
[2017-06-29] MEDS: ACCU-CHEK XX (02:00)
[2017-06-29] MEDS: INSULIN ASPART [NOVOLOG] 3 ML PEN SC ×6 (02:37→21:25)
[2017-06-29 05:23] LABS: ADD MAN DIFF? NO
[2017-06-29] MEDS: LABETALOL HCL 20MG INJ IV ×4 (05:26→22:30)
[2017-06-29 05:28] LABS: WHITE BLOOD COUNT 9.8 10^3/ul (4.8-10.8)
[2017-06-29 05:28] LABS: BASOPHILS % 0.1 % (0.0-2.0); EOSINOPHILS # 0.1 10^3/ul (0.0-0.5); EOSINOPHILS % 0.9 % (0.0-7.0); HEMATOCRIT 24.5 % (42.0-52.0); HEMOGLOBIN 7.4 g/dl (14.0-18.0); LYMPHOCYTES # 2.1 10^3/ul (0.8-2.9); MEAN CORPUSCULAR HEMOGLOBIN 26.4 pg (29.0-33.0); MEAN CORPUSCULAR HGB CONC 30.2 g/dl (32.0-37.0); MEAN CORPUSCULAR VOLUME 87.5 fl (82.0-101.0); MEAN PLATELET VOLUME 11.7 fl (7.4-10.4); MONOCYTE # 0.9 10^3/ul (0.3-0.9); MONOCYTES % 9.1 % (0.0-11.0); NEUTROPHIL # 6.6 10^3/ul (1.6-7.5); NEUTROPHILS % 68.2 % (39.0-77.0); PLATELET COUNT 325 10^3/UL (140-415); RED CELL DISTRIBUTION WIDTH 15.8 % (11.5-14.5)
[2017-06-29 05:45] LABS: CREATINE KINASE 104 IU/L (23-200)
[2017-06-29] MEDS: MEROPENEM 500MG/50 ML (PMX) 50 ML IVPB ×3 (06:12→23:08)
[2017-06-29] MEDS: HEPARIN 5,000 UNIT/0.5 ML VIAL SC (06:14)
[2017-06-29 07:00] LABS: ANION GAP 12 (8-16)
[2017-06-29 07:03] LABS: BLOOD UREA NITROGEN 17 mg/dl (7-20); CALCIUM 8.3 mg/dl (8.4-10.2); CARBON DIOXIDE 32 mmol/L (21-31); CHLORIDE 107 mmol/L (97-110); CREATININE 0.96 mg/dl (0.61-1.24); GLUCOSE 166 mg/dl (70-220); POTASSIUM 3.3 mmol/L (3.5-5.1); SODIUM 148 mmol/L (135-144)
[2017-06-29 07:20] LABS: AADO2 Arterial 134.9 mmHg (7.0-24.0); Allen Test ACCEPTAB; Arterial Base Excess 5.2 mmol/L (-3.0-3); Arterial Blood Gas Oxygen Sat 98.6 mmHG (95.0-100.0); Arterial COHb 0.4 % (0.0-3.0); Arterial Fraction of Oxyhgb 97.9 % (93.0-99.0); Arterial HCO3 29.6 mmol/L (22.0-26.0); Arterial MetHb 0.3 % (0.0-1.5); Arterial Total Hemglobin 8.4 g/dl (12.0-18.0); Arterial pCO2 43.1 mmhg (35-45); MODE MASK - SIMPLE; Site Right Radial
[2017-06-29] MEDS: METOPROLOL 25 MG TAB PO ×2 (08:19→21:13)
[2017-06-29] MEDS: SUCRALFATE (100 MG/ML) 10ML CUP PO ×4 (08:19→21:12)
[2017-06-29] MEDS: CLOPIDOGREL 75 MG TAB PO ×2 (08:19→09:26)
[2017-06-29] MEDS: ALLOPURINOL 100 MG TAB PO (08:19)
[2017-06-29] MEDS: PANTOPRAZOLE 40 MG INJ IV ×2 (08:19→21:13)
[2017-06-29] MEDS: MULTIVIT/CA CARB/B CMPLX/FA TAB PO (08:19)
[2017-06-29] MEDS: ENALAPRIL 5 MG TAB PO (08:20)
[2017-06-29] MEDS: PREGABALIN 25 MG CAP PO ×2 (08:32→21:12)
[2017-06-29] MEDS: DEXTROSE 5% 1,000 ML IV ×2 (09:34→23:09)
[2017-06-29] MEDS: SOD CHLORIDE 0.9% 250 ML IV* ×2 (09:37→21:35)
[2017-06-29 11:21] LABS: IMMEDIATE SPIN CROSSMATCH 1 5
[2017-06-29] MEDS ORDERED: SOD CHLORIDE 0.9% 250 ML IV* (16:01)
[2017-06-29] MEDS ORDERED: POTASSIUM CHLORIDE 20 MEQ in DEXTROSE 5% 100 ML IVPB (17:00)
[2017-06-29] MEDS: DAPTOMYCIN 500 MG in SOD CHLORIDE 0.9% 100 ML IVPB (17:03)
[2017-06-29] MEDS: POTASSIUM CHLORIDE 20 MEQ in DEXTROSE 5% 100 ML IVPB ×2 (17:58→19:51)
[2017-06-29] MEDS: ALTEPLASE (CATHFLO) 2 MG INJ CATHETER (18:05)
[2017-06-29] MEDS: ATORVASTATIN 40 MG TAB PO (21:12)
[2017-06-29 21:33] LABS: IMMEDIATE SPIN CROSSMATCH 1 1
[2017-06-30] MEDS: INSULIN ASPART [NOVOLOG] 3 ML PEN SC ×6 (00:37→20:25)
[2017-06-30] MEDS: ACCU-CHEK XX (00:37)
[2017-06-30] MEDS: HYDROCODONE/APAP (5/325) TAB PO (03:45)
[2017-06-30] MEDS: HYDROmorphONE 1 MG/ML SYG IV ×3 (04:28→22:32)
[2017-06-30] MEDS: LABETALOL HCL 20MG INJ IV ×3 (04:30→11:30)
[2017-06-30 06:26] LABS: ADD MAN DIFF? NO
[2017-06-30 06:41] LABS: BASOPHILS % 0.2 % (0.0-2.0); EOSINOPHILS # 0.1 10^3/ul (0.0-0.5); EOSINOPHILS % 1.4 % (0.0-7.0); HEMATOCRIT 29.2 % (42.0-52.0); HEMOGLOBIN 9.1 g/dl (14.0-18.0); LYMPHOCYTES % 23.7 % (15.0-51.0); MEAN CORPUSCULAR HEMOGLOBIN 27.4 pg (29.0-33.0); MEAN CORPUSCULAR HGB CONC 31.2 g/dl (32.0-37.0); MEAN PLATELET VOLUME 12.2 fl (7.4-10.4); MONOCYTE # 0.9 10^3/ul (0.3-0.9); MONOCYTES % 11.1 % (0.0-11.0); NEUTROPHIL # 5.2 10^3/ul (1.6-7.5); NEUTROPHILS % 62.4 % (39.0-77.0); PLATELET COUNT 294 10^3/UL (140-415); RED BLOOD COUNT 3.32 10^6/ul (4.70-6.10); RED CELL DISTRIBUTION WIDTH 15.3 % (11.5-14.5)
[2017-06-30 06:41] LABS: WHITE BLOOD COUNT 8.3 10^3/ul (4.8-10.8)
[2017-06-30] MEDS: MEROPENEM 500MG/50 ML (PMX) 50 ML IVPB ×2 (07:06→12:21)
[2017-06-30 07:36] LABS: ANION GAP 9 (8-16); BLOOD UREA NITROGEN 17 mg/dl (7-20); CALCIUM 8.3 mg/dl (8.4-10.2); CARBON DIOXIDE 34 mmol/L (21-31); CHLORIDE 107 mmol/L (97-110); CREATININE 0.87 mg/dl (0.61-1.24); GLUCOSE 233 mg/dl (70-220); POTASSIUM 3.6 mmol/L (3.5-5.1); SODIUM 146 mmol/L (135-144)
[2017-06-30] MEDS: ALLOPURINOL 100 MG TAB PO (08:40)
[2017-06-30] MEDS: PANTOPRAZOLE 40 MG INJ IV ×2 (08:40→20:14)
[2017-06-30] MEDS: SUCRALFATE (100 MG/ML) 10ML CUP PO ×4 (08:40→20:14)
[2017-06-30] MEDS: MULTIVIT/CA CARB/B CMPLX/FA TAB PO (08:40)
[2017-06-30] MEDS: ENALAPRIL 5 MG TAB PO (08:41)
[2017-06-30] MEDS: METOPROLOL 25 MG TAB PO ×2 (08:41→20:15)
[2017-06-30] MEDS: PREGABALIN 25 MG CAP PO ×2 (08:44→20:16)
[2017-06-30] MEDS: INSULIN GLARGINE [LANtus] 3 ML PEN SC (10:00)
[2017-06-30] MEDS: DEXTROSE 5% 1,000 ML IV (12:10)
[2017-06-30] MEDS: ATORVASTATIN 40 MG TAB PO (20:14)
[2017-07-01] MEDS: INSULIN ASPART [NOVOLOG] 3 ML PEN SC ×5 (00:33→17:38)
[2017-07-01] MEDS: DEXTROSE 5% 1,000 ML IV ×2 (00:35→14:42)
[2017-07-01] MEDS: ACCU-CHEK XX (02:00)
[2017-07-01] MEDS: HYDROmorphONE 1 MG/ML SYG IV ×2 (05:16→16:34)
[2017-07-01 06:57] LABS: ADD MAN DIFF? NO
[2017-07-01 07:04] LABS: WHITE BLOOD COUNT 6.5 10^3/ul (4.8-10.8)
[2017-07-01 07:04] LABS: BASOPHILS % 0.3 % (0.0-2.0); EOSINOPHILS # 0.2 10^3/ul (0.0-0.5); EOSINOPHILS % 2.8 % (0.0-7.0); HEMATOCRIT 30.4 % (42.0-52.0); HEMOGLOBIN 9.1 g/dl (14.0-18.0); LYMPHOCYTES # 1.5 10^3/ul (0.8-2.9); LYMPHOCYTES % 22.5 % (15.0-51.0); MEAN CORPUSCULAR HEMOGLOBIN 26.8 pg (29.0-33.0); MEAN CORPUSCULAR HGB CONC 29.9 g/dl (32.0-37.0); MEAN CORPUSCULAR VOLUME 89.7 fl (82.0-101.0); MEAN PLATELET VOLUME 11.7 fl (7.4-10.4); MONOCYTE # 0.5 10^3/ul (0.3-0.9); NEUTROPHIL # 4.3 10^3/ul (1.6-7.5); NEUTROPHILS % 65.6 % (39.0-77.0); PLATELET COUNT 288 10^3/UL (140-415); RED BLOOD COUNT 3.39 10^6/ul (4.70-6.10); RED CELL DISTRIBUTION WIDTH 15.6 % (11.5-14.5)
[2017-07-01 07:37] LABS: ANION GAP 8 (8-16); BLOOD UREA NITROGEN 16 mg/dl (7-20); CALCIUM 8.2 mg/dl (8.4-10.2); CARBON DIOXIDE 34 mmol/L (21-31); CHLORIDE 105 mmol/L (97-110); CREATININE 0.87 mg/dl (0.61-1.24); GLUCOSE 222 mg/dl (70-220); POTASSIUM 3.7 mmol/L (3.5-5.1); SODIUM 143 mmol/L (135-144)
[2017-07-01] MEDS: INSULIN GLARGINE [LANtus] 3 ML PEN SC (07:53)
[2017-07-01] MEDS: CLOPIDOGREL 75 MG TAB PO (08:49)
[2017-07-01] MEDS: PANTOPRAZOLE 40 MG INJ IV ×2 (08:49→21:13)
[2017-07-01] MEDS: MULTIVIT/CA CARB/B CMPLX/FA TAB PO (08:49)
[2017-07-01] MEDS: SUCRALFATE (100 MG/ML) 10ML CUP PO ×4 (08:49→21:15)
[2017-07-01] MEDS: ENALAPRIL 5 MG TAB PO (08:50)
[2017-07-01] MEDS: ALLOPURINOL 100 MG TAB PO (08:53)
[2017-07-01] MEDS: PREGABALIN 25 MG CAP PO ×2 (08:53→21:15)
[2017-07-01] MEDS: METOPROLOL 25 MG TAB PO ×2 (09:00→21:16)
[2017-07-01] MEDS: LORAZEPAM 2 MG INJ IV ×2 (11:21→21:10)
[2017-07-01] MEDS: ATORVASTATIN 40 MG TAB PO (21:15)
[2017-07-02] MEDS: INSULIN ASPART [NOVOLOG] 3 ML PEN SC ×5 (01:29→23:28)
[2017-07-02] MEDS: ACCU-CHEK XX (02:51)
[2017-07-02] MEDS: DEXTROSE 5% 1,000 ML IV (03:49)
[2017-07-02 08:13] LABS: ADD MAN DIFF? NO
[2017-07-02] MEDS: INSULIN GLARGINE [LANtus] 3 ML PEN SC (08:26)
[2017-07-02 08:28] LABS: WHITE BLOOD COUNT 7.1 10^3/ul (4.8-10.8)
[2017-07-02 08:28] LABS: BASOPHILS % 0.1 % (0.0-2.0); EOSINOPHILS # 0.2 10^3/ul (0.0-0.5); EOSINOPHILS % 2.4 % (0.0-7.0); HEMOGLOBIN 9.4 g/dl (14.0-18.0); LYMPHOCYTES # 1.7 10^3/ul (0.8-2.9); LYMPHOCYTES % 24.1 % (15.0-51.0); MEAN CORPUSCULAR HEMOGLOBIN 27.2 pg (29.0-33.0); MEAN CORPUSCULAR HGB CONC 31.3 g/dl (32.0-37.0); MEAN PLATELET VOLUME 11.5 fl (7.4-10.4); MONOCYTE # 0.7 10^3/ul (0.3-0.9); MONOCYTES % 9.6 % (0.0-11.0); NEUTROPHIL # 4.5 10^3/ul (1.6-7.5); NEUTROPHILS % 63.2 % (39.0-77.0); PLATELET COUNT 283 10^3/UL (140-415); RED BLOOD COUNT 3.45 10^6/ul (4.70-6.10); RED CELL DISTRIBUTION WIDTH 15.1 % (11.5-14.5)
[2017-07-02 08:49] LABS: ANION GAP 8 (8-16); BLOOD UREA NITROGEN 14 mg/dl (7-20); CALCIUM 8.3 mg/dl (8.4-10.2); CARBON DIOXIDE 35 mmol/L (21-31); CHLORIDE 98 mmol/L (97-110); CREATININE 0.81 mg/dl (0.61-1.24); GLUCOSE 189 mg/dl (70-220); POTASSIUM 3.6 mmol/L (3.5-5.1); SODIUM 137 mmol/L (135-144)
[2017-07-02] MEDS: MULTIVIT/CA CARB/B CMPLX/FA TAB PO (09:40)
[2017-07-02] MEDS: ALLOPURINOL 100 MG TAB PO (09:40)
[2017-07-02] MEDS: PREGABALIN 25 MG CAP PO (09:40)
[2017-07-02] MEDS: METOPROLOL 25 MG TAB PO ×2 (09:40→21:00)
[2017-07-02] MEDS: SUCRALFATE (100 MG/ML) 10ML CUP PO ×4 (09:40→20:54)
[2017-07-02] MEDS: CLOPIDOGREL 75 MG TAB PO (09:40)
[2017-07-02] MEDS: ENALAPRIL 5 MG TAB PO (09:40)
[2017-07-02] MEDS: LORAZEPAM 2 MG INJ IV (12:21)
[2017-07-02] MEDS: PANTOPRAZOLE (EC) 40 MG TAB PO (18:14)
[2017-07-02] MEDS: ATORVASTATIN 40 MG TAB PO (20:54)
[2017-07-02] MEDS: QUETIAPINE 25 MG TAB PO (23:10)
[2017-07-03] MEDS: LORAZEPAM 2 MG INJ IV ×2 (02:00→02:52)
[2017-07-03] MEDS: ACCU-CHEK XX (02:06)
[2017-07-03] MEDS: INSULIN ASPART [NOVOLOG] 3 ML PEN SC ×3 (05:37→18:08)
[2017-07-03] MEDS: PANTOPRAZOLE (EC) 40 MG TAB PO ×2 (05:40→18:00)
[2017-07-03 06:23] LABS: ADD MAN DIFF? NO
[2017-07-03 06:28] LABS: BASOPHILS % 0.2 % (0.0-2.0); EOSINOPHILS # 0.1 10^3/ul (0.0-0.5); EOSINOPHILS % 1.4 % (0.0-7.0); HEMATOCRIT 29.3 % (42.0-52.0); HEMOGLOBIN 9.2 g/dl (14.0-18.0); LYMPHOCYTES # 1.4 10^3/ul (0.8-2.9); MEAN CORPUSCULAR HEMOGLOBIN 27.5 pg (29.0-33.0); MEAN CORPUSCULAR HGB CONC 31.4 g/dl (32.0-37.0); MEAN CORPUSCULAR VOLUME 87.5 fl (82.0-101.0); MEAN PLATELET VOLUME 11.7 fl (7.4-10.4); MONOCYTE # 0.6 10^3/ul (0.3-0.9); MONOCYTES % 9.6 % (0.0-11.0); NEUTROPHIL # 4.4 10^3/ul (1.6-7.5); NEUTROPHILS % 66.3 % (39.0-77.0); PLATELET COUNT 267 10^3/UL (140-415); RED BLOOD COUNT 3.35 10^6/ul (4.70-6.10); RED CELL DISTRIBUTION WIDTH 15.3 % (11.5-14.5)
[2017-07-03 06:28] LABS: WHITE BLOOD COUNT 6.6 10^3/ul (4.8-10.8)
[2017-07-03 08:44] LABS: ANION GAP 9 (8-16); BLOOD UREA NITROGEN 12 mg/dl (7-20); CALCIUM 7.3 mg/dl (8.4-10.2); CARBON DIOXIDE 29 mmol/L (21-31); CHLORIDE 107 mmol/L (97-110); CREATININE 0.67 mg/dl (0.61-1.24); GLUCOSE 151 mg/dl (70-220); POTASSIUM 3.1 mmol/L (3.5-5.1); SODIUM 142 mmol/L (135-144)
[2017-07-03] MEDS: INSULIN GLARGINE [LANtus] 3 ML PEN SC (09:14)
[2017-07-03] MEDS: CLOPIDOGREL 75 MG TAB PO (10:09)
[2017-07-03] MEDS: SUCRALFATE (100 MG/ML) 10ML CUP PO ×4 (10:09→20:08)
[2017-07-03] MEDS: ALLOPURINOL 100 MG TAB PO (10:09)
[2017-07-03] MEDS: MULTIVIT/CA CARB/B CMPLX/FA TAB PO (10:09)
[2017-07-03] MEDS: morphine 2 MG INJ IV (10:13)
[2017-07-03] MEDS: ENALAPRIL 5 MG TAB PO (12:50)
[2017-07-03] MEDS: POTASSIUM CHLORIDE (SR) 20 MEQ TAB PO (12:50)
[2017-07-03] MEDS: METOPROLOL 25 MG TAB PO ×2 (12:51→20:07)
[2017-07-03] MEDS: ATORVASTATIN 40 MG TAB PO (20:07)
[2017-07-03] MEDS: QUETIAPINE 25 MG TAB PO (20:07)
[2017-07-03] MEDS: HYDROmorphONE 1 MG/ML SYG IV (20:15)
[2017-07-04] MEDS: INSULIN ASPART [NOVOLOG] 3 ML PEN SC ×5 (00:55→18:00)
[2017-07-04] MEDS: ACCU-CHEK XX (02:08)
[2017-07-04] MEDS: HYDROmorphONE 1 MG/ML SYG IV ×4 (02:25→21:31)
[2017-07-04] MEDS: PANTOPRAZOLE (EC) 40 MG TAB PO ×2 (05:53→17:25)
[2017-07-04 06:00] LABS: ANION GAP 9 (8-16); BLOOD UREA NITROGEN 20 mg/dl (7-20); CALCIUM 8.6 mg/dl (8.4-10.2); CARBON DIOXIDE 34 mmol/L (21-31); CHLORIDE 100 mmol/L (97-110); CREATININE 0.86 mg/dl (0.61-1.24); GLUCOSE 180 mg/dl (70-220); POTASSIUM 3.8 mmol/L (3.5-5.1); SODIUM 139 mmol/L (135-144)
[2017-07-04] MEDS: INSULIN GLARGINE [LANtus] 3 ML PEN SC (09:03)
[2017-07-04] MEDS: SUCRALFATE (100 MG/ML) 10ML CUP PO ×4 (09:57→21:00)
[2017-07-04] MEDS: MULTIVIT/CA CARB/B CMPLX/FA TAB PO (09:57)
[2017-07-04] MEDS: ALLOPURINOL 100 MG TAB PO (09:57)
[2017-07-04] MEDS: CLOPIDOGREL 75 MG TAB PO (09:57)
[2017-07-04] MEDS: ENALAPRIL 5 MG TAB PO (09:58)
[2017-07-04] MEDS: METOPROLOL 25 MG TAB PO ×2 (09:58→21:00)
[2017-07-04] MEDS: SOD CHLORIDE 0.9% 1,000 ML IV (18:47)
[2017-07-04] MEDS: QUETIAPINE 25 MG TAB PO (21:00)
[2017-07-04] MEDS: ATORVASTATIN 40 MG TAB PO (21:00)
[2017-07-04] MEDS: HALOPERIDOL 5 MG INJ IM (22:59)
[2017-07-05] MEDS: LORAZEPAM 2 MG INJ IV (00:01)
[2017-07-05] MEDS: INSULIN ASPART [NOVOLOG] 3 ML PEN SC ×4 (00:12→18:07)
[2017-07-05] MEDS: ACCU-CHEK XX (02:00)
[2017-07-05] MEDS: HYDROmorphONE 1 MG/ML SYG IV (04:38)
[2017-07-05] MEDS: PANTOPRAZOLE (EC) 40 MG TAB PO ×2 (06:00→17:59)
[2017-07-05] MEDS: SOD CHLORIDE 0.9% 1,000 ML IV (08:57)
[2017-07-05] MEDS: SUCRALFATE (100 MG/ML) 10ML CUP PO ×4 (10:24→20:51)
[2017-07-05] MEDS: MULTIVIT/CA CARB/B CMPLX/FA TAB PO (10:24)
[2017-07-05] MEDS: ALLOPURINOL 100 MG TAB PO (10:25)
[2017-07-05] MEDS: CLOPIDOGREL 75 MG TAB PO (10:25)
[2017-07-05] MEDS: ENALAPRIL 5 MG TAB PO (10:26)
[2017-07-05] MEDS: METOPROLOL 25 MG TAB PO (10:26)
[2017-07-05] MEDS: INSULIN GLARGINE [LANtus] 3 ML PEN SC (10:38)
[2017-07-05] MEDS: ATORVASTATIN 40 MG TAB PO (20:51)
[2017-07-05] MEDS: METOPROLOL 50 MG TAB PO (20:51)
[2017-07-05] MEDS: QUETIAPINE 25 MG TAB PO (20:51)
[2017-07-05] MEDS: Insulin NOVOLOG SS MODERATE Algorithm (SS with meals and bedtime) SC (20:52)
[2017-07-05] MEDS ORDERED: INSULIN ASPART [NOVOLOG] 3 ML PEN SC (21:00)
[2017-07-05] MEDS ORDERED: Insulin NOVOLOG SS MODERATE Algorithm (SS with meals and bedtime) SC (21:00)
[2017-07-06] MEDS: ACCUCHECK AT 2AM (Patients on SS coverage) XX (01:32)
[2017-07-06] MEDS: PANTOPRAZOLE (EC) 40 MG TAB PO ×2 (05:16→18:05)
[2017-07-06] MEDS: Insulin NOVOLOG SS MODERATE Algorithm (SS with meals and bedtime) SC ×4 (07:20→20:06)
[2017-07-06] MEDS: SUCRALFATE (100 MG/ML) 10ML CUP PO ×4 (10:08→20:05)
[2017-07-06] MEDS: ALLOPURINOL 100 MG TAB PO (10:08)
[2017-07-06] MEDS: CLOPIDOGREL 75 MG TAB PO (10:10)
[2017-07-06] MEDS: INSULIN GLARGINE [LANtus] 3 ML PEN SC (10:13)
[2017-07-06] MEDS: MULTIVIT/CA CARB/B CMPLX/FA TAB PO (10:15)
[2017-07-06] MEDS: METOPROLOL 50 MG TAB PO ×2 (10:16→20:05)
[2017-07-06] MEDS: ENALAPRIL 5 MG TAB PO (10:16)
[2017-07-06] MEDS: QUETIAPINE 25 MG TAB PO (20:05)
[2017-07-06] MEDS: ATORVASTATIN 40 MG TAB PO (20:05)
[2017-07-06] MEDS: HYDROmorphONE 1 MG/ML SYG IV (20:39)
[2017-07-07] MEDS: ACCUCHECK AT 2AM (Patients on SS coverage) XX ×2 (02:00→02:13)
[2017-07-07] MEDS: HYDROmorphONE 1 MG/ML SYG IV (03:30)
[2017-07-07] MEDS: PANTOPRAZOLE (EC) 40 MG TAB PO ×2 (06:01→17:26)
[2017-07-07 06:19] LABS: ADD MAN DIFF? NO
[2017-07-07 06:34] LABS: WHITE BLOOD COUNT 6.8 10^3/ul (4.8-10.8)
[2017-07-07 06:34] LABS: BASOPHILS % 0.3 % (0.0-2.0); EOSINOPHILS # 0.2 10^3/ul (0.0-0.5); EOSINOPHILS % 3.1 % (0.0-7.0); HEMATOCRIT 31.7 % (42.0-52.0); LYMPHOCYTES # 2.5 10^3/ul (0.8-2.9); LYMPHOCYTES % 36.7 % (15.0-51.0); MEAN CORPUSCULAR HEMOGLOBIN 27.5 pg (29.0-33.0); MEAN CORPUSCULAR HGB CONC 31.5 g/dl (32.0-37.0); MEAN CORPUSCULAR VOLUME 87.3 fl (82.0-101.0); MEAN PLATELET VOLUME 11.8 fl (7.4-10.4); MONOCYTE # 0.8 10^3/ul (0.3-0.9); MONOCYTES % 12.1 % (0.0-11.0); NEUTROPHIL # 3.2 10^3/ul (1.6-7.5); NEUTROPHILS % 46.8 % (39.0-77.0); PLATELET COUNT 372 10^3/UL (140-415); RED BLOOD COUNT 3.63 10^6/ul (4.70-6.10); RED CELL DISTRIBUTION WIDTH 16.1 % (11.5-14.5)
[2017-07-07 07:18] LABS: ANION GAP 16 (8-16); BLOOD UREA NITROGEN 14 mg/dl (7-20); CALCIUM 9.2 mg/dl (8.4-10.2); CARBON DIOXIDE 29 mmol/L (21-31); CHLORIDE 102 mmol/L (97-110); CREATININE 1.01 mg/dl (0.61-1.24); GLUCOSE 144 mg/dl (70-220); POTASSIUM 3.3 mmol/L (3.5-5.1); SODIUM 144 mmol/L (135-144)
[2017-07-07] MEDS: CLOPIDOGREL 75 MG TAB PO (09:14)
[2017-07-07] MEDS: SUCRALFATE (100 MG/ML) 10ML CUP PO ×4 (09:15→20:11)
[2017-07-07] MEDS: METOPROLOL 50 MG TAB PO ×2 (09:15→20:11)
[2017-07-07] MEDS: ALLOPURINOL 100 MG TAB PO (09:15)
[2017-07-07] MEDS: MULTIVIT/CA CARB/B CMPLX/FA TAB PO (09:15)
[2017-07-07] MEDS: INSULIN GLARGINE [LANtus] 3 ML PEN SC (09:21)
[2017-07-07] MEDS: Insulin NOVOLOG SS MODERATE Algorithm (SS with meals and bedtime) SC ×4 (09:22→20:15)
[2017-07-07] MEDS: ENALAPRIL 5 MG TAB PO (14:08)
[2017-07-07] MEDS: POTASSIUM CHLORIDE (SR) 20 MEQ TAB PO (14:11)
[2017-07-07] MEDS: ATORVASTATIN 40 MG TAB PO (20:11)
[2017-07-07] MEDS: QUETIAPINE 25 MG TAB PO (20:12)
[2017-07-07] MEDS: LORAZEPAM 2 MG INJ IV (20:16)
[2017-07-08] MEDS: ACCUCHECK AT 2AM (Patients on SS coverage) XX (01:51)
[2017-07-08] MEDS: PANTOPRAZOLE (EC) 40 MG TAB PO ×2 (05:39→18:05)
[2017-07-08 07:05] LABS: ANION GAP 14 (8-16); BLOOD UREA NITROGEN 11 mg/dl (7-20); CALCIUM 8.8 mg/dl (8.4-10.2); CARBON DIOXIDE 28 mmol/L (21-31); CHLORIDE 104 mmol/L (97-110); CREATININE 0.87 mg/dl (0.61-1.24); GLUCOSE 164 mg/dl (70-220); MAGNESIUM 1.7 mg/dl (1.7-2.5); POTASSIUM 3.6 mmol/L (3.5-5.1); SODIUM 142 mmol/L (135-144)
[2017-07-08] MEDS: HYDROmorphONE 1 MG/ML SYG IV (07:11)
[2017-07-08] MEDS: SUCRALFATE (100 MG/ML) 10ML CUP PO ×4 (08:36→19:48)
[2017-07-08] MEDS: CLOPIDOGREL 75 MG TAB PO (08:36)
[2017-07-08] MEDS: ALLOPURINOL 100 MG TAB PO (08:36)
[2017-07-08] MEDS: MULTIVIT/CA CARB/B CMPLX/FA TAB PO (08:36)
[2017-07-08] MEDS: METOPROLOL 50 MG TAB PO ×2 (08:37→19:47)
[2017-07-08] MEDS: ENALAPRIL 5 MG TAB PO (08:37)
[2017-07-08] MEDS: Insulin NOVOLOG SS MODERATE Algorithm (SS with meals and bedtime) SC ×4 (08:42→21:00)
[2017-07-08] MEDS: INSULIN GLARGINE [LANtus] 3 ML PEN SC (08:42)
[2017-07-08] MEDS: HYDROCODONE/APAP (5/325) TAB PO (08:47)
[2017-07-08] MEDS: INSULIN ASPART [NOVOLOG] 3 ML PEN SC ×2 (11:40→18:04)
[2017-07-08] MEDS: morphine 2 MG INJ IV ×2 (12:38→20:55)
[2017-07-08] MEDS: LORAZEPAM 2 MG INJ IV (15:18)
[2017-07-08] MEDS: ATORVASTATIN 40 MG TAB PO (19:48)
[2017-07-08] MEDS: DOCUSATE SODIUM 100 MG CAP PO (19:48)
[2017-07-08] MEDS: QUETIAPINE 25 MG TAB PO (19:48)
[2017-07-08] MEDS: HYDROCODONE/APAP (7.5/325) TAB PO (19:48)
[2017-07-09] MEDS: ACCUCHECK AT 2AM (Patients on SS coverage) XX (02:00)
[2017-07-09] MEDS: morphine 2 MG INJ IV ×3 (04:36→21:20)
[2017-07-09] MEDS: PANTOPRAZOLE (EC) 40 MG TAB PO ×2 (04:59→18:13)
[2017-07-09] MEDS: ALLOPURINOL 100 MG TAB PO (09:04)
[2017-07-09] MEDS: METOPROLOL 50 MG TAB PO ×2 (09:04→19:31)
[2017-07-09] MEDS: CLOPIDOGREL 75 MG TAB PO (09:04)
[2017-07-09] MEDS: DOCUSATE SODIUM 100 MG CAP PO ×2 (09:04→19:30)
[2017-07-09] MEDS: SUCRALFATE (100 MG/ML) 10ML CUP PO ×4 (09:04→19:30)
[2017-07-09] MEDS: MULTIVIT/CA CARB/B CMPLX/FA TAB PO (09:04)
[2017-07-09] MEDS: POLYETHYLENE GLYCOL 17 GM PACKET PO (09:05)
[2017-07-09] MEDS: ENALAPRIL 5 MG TAB PO (09:05)
[2017-07-09] MEDS: Insulin NOVOLOG SS MODERATE Algorithm (SS with meals and bedtime) SC ×4 (09:15→21:00)
[2017-07-09] MEDS: INSULIN GLARGINE [LANtus] 3 ML PEN SC (09:16)
[2017-07-09] MEDS: INSULIN ASPART [NOVOLOG] 3 ML PEN SC ×3 (09:16→18:17)
[2017-07-09] MEDS: ATORVASTATIN 40 MG TAB PO (19:30)
[2017-07-09] MEDS: LORAZEPAM 2 MG INJ IV (19:31)
[2017-07-09] MEDS: QUETIAPINE 25 MG TAB PO (19:31)
[2017-07-10] MEDS: ACCUCHECK AT 2AM (Patients on SS coverage) XX (02:00)
[2017-07-10] MEDS: HYDROCODONE/APAP (7.5/325) TAB PO ×3 (03:07→17:34)
[2017-07-10] MEDS: PANTOPRAZOLE (EC) 40 MG TAB PO ×2 (04:38→17:22)
[2017-07-10] MEDS: morphine 2 MG INJ IV (05:24)
[2017-07-10] MEDS: INSULIN ASPART [NOVOLOG] 3 ML PEN SC ×3 (07:50→17:32)
[2017-07-10] MEDS: METOPROLOL 50 MG TAB PO (08:58)
[2017-07-10] MEDS: POLYETHYLENE GLYCOL 17 GM PACKET PO (08:58)
[2017-07-10] MEDS: MULTIVIT/CA CARB/B CMPLX/FA TAB PO (08:59)
[2017-07-10] MEDS: CLOPIDOGREL 75 MG TAB PO (08:59)
[2017-07-10] MEDS: ALLOPURINOL 100 MG TAB PO (08:59)
[2017-07-10] MEDS: DOCUSATE SODIUM 100 MG CAP PO (09:00)
[2017-07-10] MEDS: ENALAPRIL 5 MG TAB PO (09:00)
[2017-07-10] MEDS: Insulin NOVOLOG SS MODERATE Algorithm (SS with meals and bedtime) SC ×3 (09:01→17:25)
[2017-07-10] MEDS: INSULIN GLARGINE [LANtus] 3 ML PEN SC (09:03)
[2017-07-10] MEDS: SUCRALFATE (100 MG/ML) 10ML CUP PO ×3 (09:05→17:00)
[2017-07-10] MEDS: LORAZEPAM 2 MG INJ IV (14:07)
[2017-07-10] MEDS: FUROSEMIDE 20 MG INJ IV (14:26)
== END 2017-07-10 20:15 | DRG 853 ==
LOC: ICU 06-16 18:08 → E/R 08:31 → TEL 06-30 16:13 → MS1 07-02 16:49 → PP2 09:11
PROVIDERS: Family Medicine
PROC: 0Y6H0Z2 Detachment at Right Lower Leg, Mid, Open Approach (ICD-10-PCS; principal; 2017-06-27 14:00)
PROC: 30233N1 Transfusion of Nonautologous Red Blood Cells into Peripheral Vein, Percutaneous Approach (ICD-10-PCS; 2017-06-27 14:32)
PROC: 02H633Z Insertion of Infusion Device into Right Atrium, Percutaneous Approach (ICD-10-PCS; 2017-06-27 14:32)
DX: A41.9 Sepsis, unspecified organism (principal); N17.0 Acute kidney failure with tubular necrosis; J96.01 Acute respiratory failure with hypoxia; I21.4 Non-ST elevation (NSTEMI) myocardial infarction; I50.33 Acute on chronic diastolic (congestive) heart failure; R65.21 Severe sepsis with septic shock; M72.6 Necrotizing fasciitis; J18.9 Pneumonia, unspecified organism; I96 Gangrene, not elsewhere classified; I13.0 Hypertensive heart and chronic kidney disease with heart failure and stage 1 through stage 4 chronic kidney disease, or unspecified chronic kidney disease; G92 Toxic encephalopathy; E11.52 Type 2 diabetes mellitus with diabetic peripheral angiopathy with gangrene; M86.9 Osteomyelitis, unspecified; E87.2 Acidosis; E87.0 Hyperosmolality and hypernatremia; K92.1 Melena; E87.70 Fluid overload, unspecified; E11.22 Type 2 diabetes mellitus with diabetic chronic kidney disease; E11.65 Type 2 diabetes mellitus with hyperglycemia; E79.0 Hyperuricemia without signs of inflammatory arthritis and tophaceous disease; D64.9 Anemia, unspecified; E87.6 Hypokalemia; N18.9 Chronic kidney disease, unspecified; E11.69 Type 2 diabetes mellitus with other specified complication; E11.621 Type 2 diabetes mellitus with foot ulcer; L97.519 Non-pressure chronic ulcer of other part of right foot with unspecified severity; E11.40 Type 2 diabetes mellitus with diabetic neuropathy, unspecified; E66.9 Obesity, unspecified; Z68.33 Body mass index [BMI] 33.0-33.9, adult; B95.2 Enterococcus as the cause of diseases classified elsewhere; B96.89 Other specified bacterial agents as the cause of diseases classified elsewhere; Z91.14 Patient's other noncompliance with medication regimen; Z79.4 Long term (current) use of insulin
CPT/HCPCS: 36415; 36430; 36569; 36600; 71010; 73630; 73700; 76705; 76775; 76937; 78452; 78582; 80048; 80053; 80061; 81003; 82140; 82270; 82550; 82553; 82570; 82728; 82803; 82962; 83036; 83540; 83605; 83735; 83880; 84100; 84132; 84300; 84443; 84484; 84560; 85025; 85045; 85610; 85730; 86140; 86850; 86900; 86901; 86920; 87040; 87070; 87081; 87086; 88305; 89190; 92526; 92610; 93005; 93017; 93306; 93922; 93970; 94640; 94660; 94664; 96361; 96365; 96375; 97110; 97162; 97164; 97166; 97530; 97535; 99291-25; J1940